=== PATIENT | male | born 1965 | race Caucasian/White ===

== ENCOUNTER 2017-01-05 17:55 | Emergency (ER) | payer OTHER ==
[2017-01-05 19:03] VITALS: BP 141/58
[2017-01-05] MEDS ORDERED: Butorphanol 2 MG/ML SDV IM PRN (19:26)
[2017-01-05] MEDS ORDERED: Ondansetron 4 MG Tab.DIS PO ONE (19:26)
--- NOTE | 2017-01-05 19:29 | EDM.PDOC ---
ED HPI GENERAL MEDICAL PROBLEM - General Chief Complaint: Headache Stated Complaint: MIGRAINE [id number] Time Seen by Provider: 01/05/17 19:25 Source of Information: Reports: Patient History Limitations: Reports: No Limitations - History of Present Illness INITIAL COMMENTS - FREE TEXT/NARRATIVE: This 51 yo male patient reports to the ED with a 2 day history of a migraine headache. The patient has attempted to get into his primary care facility, but has not been able to get an appointment. The patient reports he has been taking his abortive medications and ibuprofen, but has had no symptom relief. 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 Frontal Pain Score (Numeric/FACES): 8 - Related Data Allergies Allergy/AdvReac Type Severity Reaction Status Date / Time diphenhydramine HCl Allergy Intermediate Itching Verified 01/05/17 18:26 [From Benadryl] ketorolac tromethamine Allergy Intermediate Hives Verified 01/05/17 18:26 [From Toradol] morphine Allergy Intermediate Itching Verified 01/05/17 18:26 oxycodone HCl [From Percocet] Allergy Intermediate Itching Verified 01/05/17 18: 26 Penicillins Allergy Intermediate Itching Verified 01/05/17 18:26 clarithromycin Allergy Mild Rash Verified 01/05/17 18:26 prochlorperazine Allergy Mild Itching Verified 01/05/17 18:26 topiramate Allergy Mild Headache Verified 01/05/17 18:26 tramadol Allergy Mild Itching Verified 01/05/17 18:26 cyproheptadine Allergy Cannot Verified 01/05/17 18:27 Remember formaldehyde Allergy Cannot Verified 01/05/17 18:26 Remember haloperidol [From Haldol] Allergy Nausea Verified 01/05/17 18:26 haloperidol lactate Allergy Nausea Verified 01/05/17 18:26 [From Haldol] hydrocodone Allergy Hives Verified 01/05/17 18:26 olmesartan medoxomil Allergy Dizziness Verified 01/05/17 18:26 [From Benicar HCT] propoxyphene napsylate Allergy Itching Verified 01/05/17 18:26 [From Darvocet-N 100] Home Meds: Home Meds Almotriptan [Axert] 12.5 mg PO ASDIRECTED PRN 03/29/13 [History] Aspirin [Halfprin] 81 mg PO DAILY 03/29/13 [History] Colesevelam HCl [Welchol] 625 mg PO DAILY 03/29/13 [History] Doxepin [SINEquan] 150 mg PO BEDTIME 03/29/13 [History] Ibuprofen [Motrin] 200 mg PO Q6H PRN 03/29/13 [History] Losartan/Hydrochlorothiazide [Hyzaar 50-12.5 Tablet] 1 tab PO DAILY 05/17/13 [ History] Naproxen 500 mg PO BID 06/06/14 [History] Past Medical History Respiratory History: Reports: Sleep Apnea Neurological History: Reports: Migraines - Past Surgical History HEENT Surgical History: Reports: Naso-Sinus Surgery, Tonsillectomy Musculoskeletal Surgical History: Reports: Hip Replacement Social & Family History - Family History Family Medical History: Noncontributory - Tobacco Use Smoking Status *Q: Former Smoker Years of Tobacco use: 35 Packs/Tins Daily: 1 Used Tobacco, but Quit: Yes Month Tobacco Last Used: 03/1991 Second Hand Smoke Exposure: No - Caffeine Use Caffeine Use: Reports: Coffee, Soda - Alcohol Use Days Per Week of Alcohol Use: 2 Number of Drinks Per Day: 4 Total Drinks Per Week: 8 - Recreational Drug Use Recreational Drug Use: No - Living Situation & Occupation Living situation: Reports: Single Occupation: Employed ED ROS GENERAL - Review of Systems Review Of Systems: ROS reveals no pertinent complaints other than HPI. - Physical Exam Exam: See Below Exam Limited By: No Limitations General Appearance: Alert, WD/WN, Moderate Distress Eye Exam: Bilateral Eye: EOMI, Normal Inspection, PERRL Ears: Normal External Exam, Normal Canal, Hearing Grossly Normal, Normal TMs Nose: Normal Inspection, Normal Mucosa, No Blood Throat/Mouth: Normal Inspection, Normal Lips, Normal Teeth, Normal Gums, Normal Oropharynx, Normal Voice, No Airway Compromise Head Exam: Atraumatic, Normocephalic Neck: Normal Inspection, Supple, Non-Tender, Full Range of Motion Respiratory/Chest: No Respiratory Distress, Lungs Clear, Normal Breath Sounds, No Accessory Muscle Use, Chest Non-Tender Cardiovascular: Normal Peripheral Pulses, Regular Rate, Rhythm, No Edema, No Gallop, No JVD, No Murmur, No Rub GI/Abdominal: Normal Bowel Sounds, Soft, Non-Tender, No Organomegaly, No Distention, No Abnormal Bruit, No Mass (Male) Exam: Deferred Rectal (Males) Exam: Deferred Neuro Exam (Abbreviated): Alert, Oriented, CN II-XII Intact, Normal Cognition, Normal Gait, Normal Reflexes, No Motor/Sensory Deficits Extremities: Normal Inspection, Normal Range of Motion, Non-Tender, No Pedal Edema, Normal Capillary Refill Psychiatric: Normal Affect, Normal Mood Skin Exam: Warm, Dry, Intact, Normal Color, No Rash Course - Vital Signs Last Recorded V/S: Last Vital Signs Temp 36.6 C 01/05/17 19:01 Pulse 92 01/05/17 19:01 Resp 19 01/05/17 19:01 BP 141/58 H 01/05/17 19:01 Pulse Ox 97 01/05/17 19:01 - Orders/Labs/Meds Orders: Active Orders 24 hr Category Date Time Status Butorphanol [Stadol] Med 01/05/17 19:26 Ordered 2 mg IM Q2H PRN Medication Orders Butorphanol Tartrate (Stadol) 2 mg IM Q2H PRN PRN Reason: Pain Last Admin: 01/05/17 19:31 Dose: 2 mg Meds: Medications Generic Name Dose Route Start Last Admin Trade Name Freq PRN Reason Stop Dose Admin Butorphanol Tartrate 2 mg 01/05/17 19:26 01/05/17 19:31 Stadol IM 2 mg Q2H PRN Administration Pain Discontinued Medications Generic Name Dose Route Start Last Admin Trade Name Freq PRN Reason Stop Dose Admin Ondansetron HCl 4 mg 01/05/17 19:26 01/05/17 19:31 Zofran Odt PO 01/05/17 19:27 4 mg ONETIME ONE Administration Departure - Departure Time of Disposition: 19:27 Disposition: Home, Self-Care 01 Condition: Fair Clinical Impression: Migraine - Discharge Information Instructions: Recurrent Migraine Headache, [id number] Forms: ED Department Discharge Care Plan Goals: The patient was advised of the examination results during the visit. The patient was given an oral dose of Zofran and an injection of Stadol (2 mg) while in the ED. The patient was encouraged to increase his oral fluid intake. The patient should follow-up with his primary care facility for continued evaluation and further management. If the patient has any additional symptoms or concerns, the patient should either visit his primary care facility or return to the emergency department. - My Orders Last 24 Hours: My Active Orders 01/05/17 19:26 Butorphanol [Stadol] 2 mg IM Q2H PRN - Assessment/Plan Last 24 Hours: My Active Orders 01/05/17 19:26 Butorphanol [Stadol] 2 mg IM Q2H PRN
== END 2017-01-05 19:49 | disposition home or self-care (01) ==
LOC: DL.ED 17:55
DX: G43.909 Migraine, unspecified, not intractable, without status migrainosus (principal); Z88.8 Allergy status to other drugs, medicaments and biological substances; Z79.899 Other long term (current) drug therapy; Z87.891 Personal history of nicotine dependence
CPT/HCPCS: 96372; 99283; A9270; J0595

== ENCOUNTER 2017-01-13 14:53 | Emergency (ER) | payer OTHER ==
[2017-01-13 15:19] VITALS: BP 158/82
[2017-01-13] MEDS ORDERED: Butorphanol 2 MG/ML SDV IM ONE (18:59)
--- NOTE | 2017-01-13 19:03 | EDM.PDOC ---
ED HPI GENERAL MEDICAL PROBLEM - General Chief Complaint: Headache Stated Complaint: [id number] MIGRAINE Time Seen by Provider: 01/13/17 18:59 Source of Information: Reports: Patient History Limitations: Reports: No Limitations - History of Present Illness INITIAL COMMENTS - FREE TEXT/NARRATIVE: richard h/o prob. same as before, no change Headache Pain Score (Numeric/FACES): 6 - Related Data Allergies Allergy/AdvReac Type Severity Reaction Status Date / Time diphenhydramine HCl Allergy Intermediate Itching Verified 01/13/17 15:12 [From Benadryl] ketorolac tromethamine Allergy Intermediate Hives Verified 01/13/17 15:12 [From Toradol] morphine Allergy Intermediate Itching Verified 01/13/17 15:12 oxycodone HCl [From Percocet] Allergy Intermediate Itching Verified 01/13/17 15: 12 Penicillins Allergy Intermediate Itching Verified 01/13/17 15:12 clarithromycin Allergy Mild Rash Verified 01/13/17 15:12 prochlorperazine Allergy Mild Itching Verified 01/13/17 15:12 topiramate Allergy Mild Headache Verified 01/13/17 15:12 tramadol Allergy Mild Itching Verified 01/13/17 15:12 cyproheptadine Allergy Cannot Verified 01/13/17 15:12 Remember formaldehyde Allergy Cannot Verified 01/13/17 15:12 Remember haloperidol [From Haldol] Allergy Nausea Verified 01/13/17 15:12 haloperidol lactate Allergy Nausea Verified 01/13/17 15:12 [From Haldol] hydrocodone Allergy Hives Verified 01/13/17 15:12 olmesartan medoxomil Allergy Dizziness Verified 01/13/17 15:12 [From Benicar HCT] propoxyphene napsylate Allergy Itching Verified 01/13/17 15:12 [From Darvocet-N 100] Home Meds: Home Meds Almotriptan [Axert] 12.5 mg PO ASDIRECTED PRN 03/29/13 [History] Aspirin [Halfprin] 81 mg PO DAILY 03/29/13 [History] Colesevelam HCl [Welchol] 625 mg PO DAILY 03/29/13 [History] Doxepin [SINEquan] 150 mg PO BEDTIME 03/29/13 [History] Ibuprofen [Motrin] 200 mg PO Q6H PRN 03/29/13 [History] Losartan/Hydrochlorothiazide [Hyzaar 50-12.5 Tablet] 1 tab PO DAILY 05/17/13 [ History] Naproxen 500 mg PO BID 06/06/14 [History] Past Medical History Respiratory History: Reports: Sleep Apnea Neurological History: Reports: Migraines - Past Surgical History HEENT Surgical History: Reports: Naso-Sinus Surgery, Tonsillectomy Musculoskeletal Surgical History: Reports: Hip Replacement Social & Family History - Family History Family Medical History: Noncontributory - Tobacco Use Smoking Status *Q: Never Smoker Years of Tobacco use: 35 Packs/Tins Daily: 1 Used Tobacco, but Quit: Yes Month Tobacco Last Used: 03/1991 Second Hand Smoke Exposure: No - Caffeine Use Caffeine Use: Reports: Coffee, Soda - Alcohol Use Days Per Week of Alcohol Use: 2 Number of Drinks Per Day: 4 Total Drinks Per Week: 8 - Recreational Drug Use Recreational Drug Use: No - Living Situation & Occupation Living situation: Reports: Single Occupation: Employed ED ROS GENERAL - Review of Systems Review Of Systems: ROS reveals no pertinent complaints other than HPI. - Physical Exam Exam: See Below Exam Limited By: No Limitations General Appearance: Alert, WD/WN, Mild Distress, Other (headache) Eye Exam: Bilateral Eye: PERRL (pupils ess ER @ 4mm) Ears: Hearing Grossly Normal Throat/Mouth: Normal Voice, No Airway Compromise Head Exam: Atraumatic Neck: Non-Tender, Full Range of Motion Respiratory/Chest: No Respiratory Distress Cardiovascular: Regular Rate, Rhythm GI/Abdominal: Soft, Non-Tender Neuro Exam (Abbreviated): Alert, Oriented, Normal Cognition, Normal Gait, No Motor/Sensory Deficits Psychiatric: Flat Affect Skin Exam: Warm, Dry, Normal Color Course - Vital Signs Last Recorded V/S: Last Vital Signs Temp 36.4 C 01/13/17 15:17 Pulse 88 01/13/17 15:17 Resp 18 01/13/17 15:17 BP 158/82 H 01/13/17 15:17 Pulse Ox 98 01/13/17 15:17 - Orders/Labs/Meds Meds: Medications Discontinued Medications Generic Name Dose Route Start Last Admin Trade Name Freq PRN Reason Stop Dose Admin Butorphanol Tartrate 2 mg 01/13/17 18:59 01/13/17 19:03 Stadol IM 01/13/17 19:00 2 mg ONETIME ONE Administration Departure - Departure Time of Disposition: 19:00 Disposition: Home, Self-Care 01 Condition: Good Clinical Impression: Cluster headache syndrome - Discharge Information Instructions: Cluster Headache, [id number] Forms: ED Department Discharge Additional Instructions: 1) rest as much as possible 2) recheck as needed
== END 2017-01-13 19:07 | disposition home or self-care (01) ==
LOC: DL.ED 14:53
DX: G44.009 Cluster headache syndrome, unspecified, not intractable (principal); Z88.0 Allergy status to penicillin; Z88.5 Allergy status to narcotic agent; Z88.6 Allergy status to analgesic agent; Z79.82 Long term (current) use of aspirin; Z88.8 Allergy status to other drugs, medicaments and biological substances
CPT/HCPCS: 96372; 99283; J0595

== ENCOUNTER 2017-01-28 13:31 | Emergency (ER) | payer OTHER ==
[2017-01-28 16:48] VITALS: BP 144/93
[2017-01-28] MEDS ORDERED: Butorphanol 2 MG/ML SDV IM ONE (17:31)
[2017-01-28] MEDS ORDERED: Promethazine 25 MG/ML SDV IM ONE (17:32)
--- NOTE | 2017-01-28 17:35 | EDM.PDOC ---
ED HPI GENERAL MEDICAL PROBLEM - General Chief Complaint: Headache Stated Complaint: headache Time Seen by Provider: 01/28/17 17:00 Source of Information: Reports: Patient, RN Notes Reviewed History Limitations: Reports: No Limitations - History of Present Illness INITIAL COMMENTS - FREE TEXT/NARRATIVE: Patient presents with migraine which began last night associated with nausea, right occipital lateral side of the head wrapping around to the temporal and frontal area. Location: Reports: Head Quality: Reports: Ache Severity: Severe Improves with: Reports: None Worsens with: Reports: None Associated Symptoms: Reports: No Other Symptoms Headache Pain Score (Numeric/FACES): 10 - Related Data Allergies Allergy/AdvReac Type Severity Reaction Status Date / Time diphenhydramine HCl Allergy Intermediate Itching Verified 01/28/17 16:47 [From Benadryl] ketorolac tromethamine Allergy Intermediate Hives Verified 01/28/17 16:47 [From Toradol] morphine Allergy Intermediate Itching Verified 01/28/17 16:47 oxycodone HCl [From Percocet] Allergy Intermediate Itching Verified 01/28/17 16: 47 Penicillins Allergy Intermediate Itching Verified 01/28/17 16:47 clarithromycin Allergy Mild Rash Verified 01/28/17 16:47 prochlorperazine Allergy Mild Itching Verified 01/28/17 16:47 topiramate Allergy Mild Headache Verified 01/28/17 16:47 tramadol Allergy Mild Itching Verified 01/28/17 16:47 cyproheptadine Allergy Cannot Verified 01/28/17 16:47 Remember formaldehyde Allergy Cannot Verified 01/28/17 16:47 Remember haloperidol [From Haldol] Allergy Nausea Verified 01/28/17 16:47 haloperidol lactate Allergy Nausea Verified 01/28/17 16:47 [From Haldol] hydrocodone Allergy Hives Verified 01/28/17 16:47 olmesartan medoxomil Allergy Dizziness Verified 01/28/17 16:47 [From Benicar HCT] propoxyphene napsylate Allergy Itching Verified 01/28/17 16:47 [From Darvocet-N 100] Home Meds: Home Meds Almotriptan [Axert] 12.5 mg PO ASDIRECTED PRN 03/29/13 [History] Aspirin [Halfprin] 81 mg PO DAILY 03/29/13 [History] Colesevelam HCl [Welchol] 625 mg PO DAILY 03/29/13 [History] Doxepin [SINEquan] 150 mg PO BEDTIME 03/29/13 [History] Ibuprofen [Motrin] 200 mg PO Q6H PRN 03/29/13 [History] Losartan/Hydrochlorothiazide [Hyzaar 50-12.5 Tablet] 1 tab PO DAILY 05/17/13 [ History] Naproxen 500 mg PO BID 06/06/14 [History] Past Medical History Cardiovascular History: Reports: High Cholesterol, Hypertension Respiratory History: Reports: Sleep Apnea Neurological History: Reports: Migraines - Infectious Disease History Infectious Disease History: Reports: Chicken Pox - Past Surgical History HEENT Surgical History: Reports: Naso-Sinus Surgery, Tonsillectomy Musculoskeletal Surgical History: Reports: Hip Replacement Social & Family History - Family History Family Medical History: Noncontributory - Tobacco Use Smoking Status *Q: Never Smoker Years of Tobacco use: 35 Packs/Tins Daily: 1 Used Tobacco, but Quit: Yes Month Tobacco Last Used: 03/1991 Second Hand Smoke Exposure: No - Caffeine Use Caffeine Use: Reports: Coffee - Alcohol Use Days Per Week of Alcohol Use: 2 Number of Drinks Per Day: 4 Total Drinks Per Week: 8 - Recreational Drug Use Recreational Drug Use: No - Living Situation & Occupation Living situation: Reports: Single Occupation: Employed ED ROS GENERAL - Review of Systems Review Of Systems: ROS reveals no pertinent complaints other than HPI. - Physical Exam Exam: See Below Exam Limited By: No Limitations General Appearance: Alert, WD/WN, No Apparent Distress Eye Exam: Bilateral Eye: Normal Inspection Ears: Normal External Exam, Normal Canal, Hearing Grossly Normal, Normal TMs Nose: Normal Inspection, Normal Mucosa, No Blood Throat/Mouth: Normal Inspection, Normal Lips, Normal Teeth, Normal Gums, Normal Oropharynx, Normal Voice, No Airway Compromise Head Exam: Atraumatic, Normocephalic Neck: Normal Inspection, Supple, Non-Tender, Full Range of Motion Respiratory/Chest: No Respiratory Distress, Lungs Clear, Normal Breath Sounds, No Accessory Muscle Use, Chest Non-Tender Cardiovascular: Normal Peripheral Pulses, Regular Rate, Rhythm, No Edema, No Gallop, No JVD, No Murmur, No Rub GI/Abdominal: Normal Bowel Sounds, Soft, Non-Tender, No Organomegaly, No Distention, No Abnormal Bruit, No Mass (Male) Exam: Deferred Rectal (Males) Exam: Deferred Neuro Exam (Abbreviated): Alert, Oriented, CN II-XII Intact, Normal Cognition, Normal Gait, Normal Reflexes, No Motor/Sensory Deficits Back Exam: Normal Inspection, Full Range of Motion, NT Extremities: Normal Inspection, Normal Range of Motion, Non-Tender, No Pedal Edema, Normal Capillary Refill Psychiatric: Normal Affect, Normal Mood Skin Exam: Warm, Dry, Intact, Normal Color, No Rash Course - Vital Signs Last Recorded V/S: Last Vital Signs Temp 97.4 F 01/28/17 16:47 Pulse 87 01/28/17 16:47 Resp 20 01/28/17 16:47 BP 144/93 H 01/28/17 16:47 Pulse Ox 97 01/28/17 16:47 - Orders/Labs/Meds Meds: Medications Discontinued Medications Generic Name Dose Route Start Last Admin Trade Name Freq PRN Reason Stop Dose Admin Butorphanol Tartrate 2 mg 01/28/17 17:31 Stadol IM 01/28/17 17:32 ONETIME ONE Promethazine HCl 50 mg 01/28/17 17:32 Phenergan IM 01/28/17 17:33 ONETIME ONE Departure - Departure Time of Disposition: 17:33 Disposition: Home, Self-Care 01 Condition: Fair Clinical Impression: Migraine - Discharge Information Instructions: Recurrent Migraine Headache, [id number] Referrals: Anshu Pillai MD [Primary Care Provider] - Forms: ED Department Discharge Additional Instructions: Rest Drink plenty of water Follow up with your primary care facility
== END 2017-01-28 18:30 | disposition home or self-care (01) ==
LOC: DL.ED 13:31
DX: G43.909 Migraine, unspecified, not intractable, without status migrainosus (principal); Z88.0 Allergy status to penicillin; Z88.6 Allergy status to analgesic agent; Z88.8 Allergy status to other drugs, medicaments and biological substances; Z88.5 Allergy status to narcotic agent; Z79.82 Long term (current) use of aspirin; Z79.899 Other long term (current) drug therapy
CPT/HCPCS: 96372; 99283; J0595; J2550

== ENCOUNTER 2017-03-17 18:36 | Emergency (ER) | payer OTHER ==
[2017-03-17 18:56] VITALS: BP 135/86
[2017-03-17] MEDS ORDERED: Butorphanol 2 MG/ML SDV IM ONE (19:08)
[2017-03-17] MEDS ORDERED: Promethazine 25 MG/ML SDV IM ONE (19:33)
--- NOTE | 2017-03-17 19:59 | EDM.PDOC ---
ED HPI GENERAL MEDICAL PROBLEM - General Chief Complaint: Headache Stated Complaint: MIGRAINE, [id number] Time Seen by Provider: 03/17/17 19:05 Source of Information: Reports: Patient History Limitations: Reports: Language Barrier - History of Present Illness INITIAL COMMENTS - FREE TEXT/NARRATIVE: C/O cluster headache to right side of head since this am. Patient has extensive hx of same and has been worked up i [facility] in past. Symptoms same as usual headache. Stated he believes this one triggered by change in weather. 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) Right Headache Pain Score (Numeric/FACES): 10 - Related Data Allergies Allergy/AdvReac Type Severity Reaction Status Date / Time diphenhydramine HCl Allergy Intermediate Itching Verified 03/17/17 18:49 [From Benadryl] ketorolac tromethamine Allergy Intermediate Hives Verified 03/17/17 18:49 [From Toradol] morphine Allergy Intermediate Itching Verified 03/17/17 18:49 oxycodone HCl [From Percocet] Allergy Intermediate Itching Verified 03/17/17 18: 49 Penicillins Allergy Intermediate Itching Verified 03/17/17 18:49 clarithromycin Allergy Mild Rash Verified 03/17/17 18:49 prochlorperazine Allergy Mild Itching Verified 03/17/17 18:49 topiramate Allergy Mild Headache Verified 03/17/17 18:49 tramadol Allergy Mild Itching Verified 03/17/17 18:49 cyproheptadine Allergy Cannot Verified 03/17/17 18:49 Remember formaldehyde Allergy Cannot Verified 03/17/17 18:49 Remember haloperidol [From Haldol] Allergy Nausea Verified 03/17/17 18:49 haloperidol lactate Allergy Nausea Verified 03/17/17 18:49 [From Haldol] hydrocodone Allergy Hives Verified 03/17/17 18:49 olmesartan medoxomil Allergy Dizziness Verified 03/17/17 18:49 [From Benicar HCT] propoxyphene napsylate Allergy Itching Verified 03/17/17 18:49 [From Darvocet-N 100] Home Meds: Home Meds Almotriptan [Axert] 12.5 mg PO ASDIRECTED PRN 03/29/13 [History] Aspirin [Halfprin] 81 mg PO DAILY 03/29/13 [History] Colesevelam HCl [Welchol] 625 mg PO DAILY 03/29/13 [History] Doxepin [SINEquan] 150 mg PO BEDTIME 03/29/13 [History] Ibuprofen [Motrin] 200 mg PO Q6H PRN 03/29/13 [History] Losartan/Hydrochlorothiazide [Hyzaar 50-12.5 Tablet] 1 tab PO DAILY 05/17/13 [ History] Naproxen 500 mg PO BID 06/06/14 [History] Clindamycin HCl 1 tab PO ASDIRECTED 03/17/17 [History] Cyclobenzaprine [Flexeril] 1 tab PO Q8H PRN 03/17/17 [History] Propranolol [Inderal LA] 1 tab PO DAILY 03/17/17 [History] Triamcinolone Acetonide [Triamcinolone Acetonide 0.1% Crm] 1 applic TOP ASDIRECTED PRN 03/17/17 [History] Past Medical History Cardiovascular History: Reports: High Cholesterol, Hypertension Respiratory History: Reports: Sleep Apnea Gastrointestinal History: Reports: None Genitourinary History: Reports: None Neurological History: Reports: Migraines - Infectious Disease History Infectious Disease History: Reports: Chicken Pox - Past Surgical History HEENT Surgical History: Reports: Naso-Sinus Surgery, Tonsillectomy Musculoskeletal Surgical History: Reports: Hip Replacement Social & Family History - Family History Family Medical History: Noncontributory - Tobacco Use Smoking Status *Q: Unknown Ever Smoked Years of Tobacco use: 35 Packs/Tins Daily: 1 Used Tobacco, but Quit: Yes Month Tobacco Last Used: 03/1991 Second Hand Smoke Exposure: No - Caffeine Use Caffeine Use: Reports: Coffee, Soda - Alcohol Use Days Per Week of Alcohol Use: 2 Number of Drinks Per Day: 4 Total Drinks Per Week: 8 - Recreational Drug Use Recreational Drug Use: No - Living Situation & Occupation Living situation: Reports: Single Occupation: Employed ED ROS GENERAL - Review of Systems Review Of Systems: See Below Constitutional: Reports: No Symptoms HEENT: Reports: Vision Change (intermittent light sensitivity) Cardiovascular: Reports: No Symptoms Endocrine: Reports: No Symptoms GI/Abdominal: Reports: Nausea (intermittent) Musculoskeletal: Reports: Neck Pain (chronic, no change) Skin: Reports: No Symptoms Neurological: Reports: Headache Psychiatric: Reports: No Symptoms Hematologic/Lymphatic: Reports: No Symptoms Immunologic: Reports: No Symptoms - Physical Exam Exam: See Below Exam Limited By: No Limitations General Appearance: Alert, Mild Distress Eye Exam: Bilateral Eye: EOMI, PERRL Ears: Normal External Exam, Normal TMs Nose: Normal Inspection Throat/Mouth: Normal Inspection Head Exam: Atraumatic, Normocephalic Neck: Tender Lateral Respiratory/Chest: No Respiratory Distress, Lungs Clear Cardiovascular: Regular Rate, Rhythm GI/Abdominal: Normal Bowel Sounds Neuro Exam (Abbreviated): Alert, Oriented, CN II-XII Intact, Normal Cognition, Normal Gait, Normal Reflexes Back Exam: Full Range of Motion Extremities: Normal Inspection Psychiatric: Normal Affect, Normal Mood Skin Exam: Warm, Dry, Intact, Normal Color Course - Vital Signs Last Recorded V/S: Last Vital Signs Temp 97.8 F 03/17/17 18:55 Pulse 79 03/17/17 18:55 Resp 16 03/17/17 18:55 BP 135/86 03/17/17 18:55 Pulse Ox 100 03/17/17 18:55 - Orders/Labs/Meds Meds: Medications Discontinued Medications Generic Name Dose Route Start Last Admin Trade Name Christie PRN Reason Stop Dose Admin Butorphanol Tartrate 2 mg 03/17/17 19:08 03/17/17 19:15 Stadol IM 03/17/17 19:09 2 mg ONETIME ONE Administration Promethazine HCl 25 mg 03/17/17 19:33 03/17/17 19:37 Phenergan IM 03/17/17 19:34 25 mg ONETIME ONE Administration Departure - Departure Time of Disposition: 20:03 Disposition: Home, Self-Care 01 Condition: Good Clinical Impression: Cluster headache syndrome - Discharge Information Instructions: Cluster Headache, [id number] Forms: ED Department Discharge Additional Instructions: rest light activity next 24 hours follow up as needed
== END 2017-03-17 20:10 | disposition home or self-care (01) ==
LOC: DL.ED 18:36
DX: G44.009 Cluster headache syndrome, unspecified, not intractable (principal); I10 Essential (primary) hypertension; E78.00 Pure hypercholesterolemia, unspecified; Z87.891 Personal history of nicotine dependence; Z88.0 Allergy status to penicillin; Z88.1 Allergy status to other antibiotic agents; Z88.5 Allergy status to narcotic agent; Z88.6 Allergy status to analgesic agent; Z88.8 Allergy status to other drugs, medicaments and biological substances
CPT/HCPCS: 96372; 99282; J0595; J2550

== ENCOUNTER 2017-04-23 18:06 | Emergency (ER) | payer OTHER ==
[2017-04-23 19:15] VITALS: BP 143/78
[2017-04-23] MEDS ORDERED: Butorphanol 2 MG/ML SDV IM ONE (20:33)
[2017-04-23] MEDS ORDERED: Promethazine 25 MG/ML SDV IM ONE (20:33)
--- NOTE | 2017-04-23 20:35 | EDM.PDOC ---
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 Right Head Pain Score (Numeric/FACES): 8 - Related Data Allergies Allergy/AdvReac Type Severity Reaction Status Date / Time diphenhydramine HCl Allergy Intermediate Itching Verified 04/23/17 19:14 [From Benadryl] ketorolac tromethamine Allergy Intermediate Hives Verified 04/23/17 19:14 [From Toradol] morphine Allergy Intermediate Itching Verified 04/23/17 19:14 oxycodone HCl [From Percocet] Allergy Intermediate Itching Verified 04/23/17 19: 14 Penicillins Allergy Intermediate Itching Verified 04/23/17 19:14 clarithromycin Allergy Mild Rash Verified 04/23/17 19:14 prochlorperazine Allergy Mild Itching Verified 04/23/17 19:14 topiramate Allergy Mild Headache Verified 04/23/17 19:14 tramadol Allergy Mild Itching Verified 04/23/17 19:14 cyproheptadine Allergy Cannot Verified 04/23/17 19:14 Remember formaldehyde Allergy Cannot Verified 04/23/17 19:14 Remember haloperidol [From Haldol] Allergy Nausea Verified 04/23/17 19:14 haloperidol lactate Allergy Nausea Verified 04/23/17 19:14 [From Haldol] hydrocodone Allergy Hives Verified 04/23/17 19:14 olmesartan medoxomil Allergy Dizziness Verified 04/23/17 19:14 [From Benicar HCT] propoxyphene napsylate Allergy Itching Verified 04/23/17 19:14 [From Darvocet-N 100] Home Meds: Home Meds Almotriptan [Axert] 12.5 mg PO ASDIRECTED PRN 03/29/13 [History] Aspirin [Halfprin] 81 mg PO DAILY 03/29/13 [History] Colesevelam HCl [Welchol] 625 mg PO DAILY 03/29/13 [History] Doxepin [SINEquan] 150 mg PO BEDTIME 03/29/13 [History] Ibuprofen [Motrin] 200 mg PO Q6H PRN 03/29/13 [History] Losartan/Hydrochlorothiazide [Hyzaar 50-12.5 Tablet] 1 tab PO DAILY 05/17/13 [ History] Naproxen 500 mg PO BID 06/06/14 [History] Clindamycin HCl 1 tab PO ASDIRECTED 03/17/17 [History] Cyclobenzaprine [Flexeril] 1 tab PO Q8H PRN 03/17/17 [History] Propranolol [Inderal LA] 1 tab PO DAILY 03/17/17 [History] Triamcinolone Acetonide [Triamcinolone Acetonide 0.1% Crm] 1 applic TOP ASDIRECTED PRN 03/17/17 [History] Past Medical History Cardiovascular History: Reports: High Cholesterol, Hypertension Respiratory History: Reports: Sleep Apnea Gastrointestinal History: Reports: None Genitourinary History: Reports: None Neurological History: Reports: Migraines - Infectious Disease History Infectious Disease History: Reports: Chicken Pox - Past Surgical History HEENT Surgical History: Reports: Naso-Sinus Surgery, Tonsillectomy Musculoskeletal Surgical History: Reports: Hip Replacement Social & Family History - Family History Family Medical History: Noncontributory - Tobacco Use Smoking Status *Q: Never Smoker Years of Tobacco use: 35 Packs/Tins Daily: 1 Used Tobacco, but Quit: Yes Month Tobacco Last Used: 03/1991 Second Hand Smoke Exposure: No - Caffeine Use Caffeine Use: Reports: Coffee, Soda - Alcohol Use Days Per Week of Alcohol Use: 2 Number of Drinks Per Day: 4 Total Drinks Per Week: 8 - Recreational Drug Use Recreational Drug Use: No - Living Situation & Occupation Living situation: Reports: Single Occupation: Employed ED ROS GENERAL - Review of Systems Review Of Systems: ROS reveals no pertinent complaints other than HPI. - Physical Exam Exam: See Below Exam Limited By: No Limitations General Appearance: Alert, WD/WN, Mild Distress, Moderate Distress, Other ( headache) Eye Exam: Bilateral Eye: PERRL (pupils ER @ 4mm) Ears: Hearing Grossly Normal Throat/Mouth: Normal Voice, No Airway Compromise Head Exam: Atraumatic Neck: Non-Tender, Full Range of Motion Respiratory/Chest: No Respiratory Distress Cardiovascular: Regular Rate, Rhythm GI/Abdominal: Soft, Non-Tender Neuro Exam (Abbreviated): Alert, Oriented, Normal Cognition, Normal Gait, No Motor/Sensory Deficits Psychiatric: Tearful Skin Exam: Warm, Dry, Normal Color Course - Vital Signs Last Recorded V/S: Last Vital Signs Temp 36.6 C 04/23/17 19:14 Pulse 86 04/23/17 19:14 Resp 16 04/23/17 19:14 BP 143/78 H 04/23/17 19:14 Pulse Ox 99 04/23/17 19:14 - Orders/Labs/Meds Meds: Medications Discontinued Medications Generic Name Dose Route Start Last Admin Trade Name Christie PRN Reason Stop Dose Admin Butorphanol Tartrate 2 mg 04/23/17 20:33 04/23/17 20:41 Stadol IM 04/23/17 20:34 2 mg ONETIME ONE Administration Promethazine HCl 50 mg 04/23/17 20:33 04/23/17 20:43 Phenergan IM 04/23/17 20:34 50 mg ONETIME ONE Administration Departure - Departure Time of Disposition: 20:45 Disposition: Home, Self-Care 01 Condition: Good Clinical Impression: Migraine - Discharge Information Instructions: Recurrent Migraine Headache, [id number] Forms: ED Department Discharge Additional Instructions: 1) rest 2) follow up at clinic
== END 2017-04-23 20:47 | disposition home or self-care (01) ==
LOC: DL.ED 18:06
DX: G43.909 Migraine, unspecified, not intractable, without status migrainosus (principal); I10 Essential (primary) hypertension; E78.00 Pure hypercholesterolemia, unspecified; Z87.891 Personal history of nicotine dependence; Z79.82 Long term (current) use of aspirin; Z79.899 Other long term (current) drug therapy; Z88.5 Allergy status to narcotic agent; Z88.6 Allergy status to analgesic agent; Z88.8 Allergy status to other drugs, medicaments and biological substances; Z88.0 Allergy status to penicillin; Z88.1 Allergy status to other antibiotic agents
CPT/HCPCS: 96372; 99283; J0595; J2550

== ENCOUNTER 2018-04-14 19:15 | Emergency (ER) | payer OTHER ==
[2018-04-14 19:22] VITALS: BP 141/80
[2018-04-14] MEDS ORDERED: Butorphanol 2 MG/ML SDV IM ONE (20:36)
[2018-04-14] MEDS ORDERED: Promethazine 25 MG/ML SDV IM ONE (20:36)
--- NOTE | 2018-04-14 20:42 | EDM.PDOC ---
ED HPI GENERAL MEDICAL PROBLEM - General Chief Complaint: Headache Stated Complaint: MIGRAINE [id number] Time Seen by Provider: 04/14/18 20:38 Source of Information: Reports: Patient History Limitations: Reports: No Limitations - History of Present Illness INITIAL COMMENTS - FREE TEXT/NARRATIVE: gives long h/o problem Right Temporal Headache Pain Score (Numeric/FACES): 8 - Related Data Allergies Allergy/AdvReac Type Severity Reaction Status Date / Time diphenhydramine HCl Allergy Intermediate Itching Verified 04/14/18 19:34 [From Benadryl] ketorolac tromethamine Allergy Intermediate Hives Verified 04/14/18 19:34 [From Toradol] morphine Allergy Intermediate Itching Verified 04/14/18 19:34 oxycodone HCl [From Percocet] Allergy Intermediate Itching Verified 04/14/18 19: 34 Penicillins Allergy Intermediate Itching Verified 04/14/18 19:34 clarithromycin Allergy Mild Rash Verified 04/14/18 19:34 prochlorperazine Allergy Mild Itching Verified 04/14/18 19:34 topiramate Allergy Mild Headache Verified 04/14/18 19:34 tramadol Allergy Mild Itching Verified 04/14/18 19:34 cyproheptadine Allergy Cannot Verified 04/14/18 19:34 Remember formaldehyde Allergy Cannot Verified 04/14/18 19:34 Remember haloperidol [From Haldol] Allergy Nausea Verified 04/14/18 19:34 haloperidol lactate Allergy Nausea Verified 04/14/18 19:34 [From Haldol] hydrocodone Allergy Hives Verified 04/14/18 19:34 olmesartan medoxomil Allergy Dizziness Verified 04/14/18 19:34 [From Benicar HCT] propoxyphene napsylate Allergy Itching Verified 04/14/18 19:34 [From Darvocet-N 100] Home Meds: Home Meds Almotriptan [Axert] 12.5 mg PO ASDIRECTED PRN 03/29/13 [History] Aspirin [Halfprin] 81 mg PO DAILY 03/29/13 [History] Colesevelam HCl [Welchol] 625 mg PO DAILY 03/29/13 [History] Doxepin [SINEquan] 150 mg PO BEDTIME 03/29/13 [History] Ibuprofen [Motrin] 200 mg PO Q6H PRN 03/29/13 [History] Losartan/Hydrochlorothiazide [Hyzaar 50-12.5 Tablet] 2 tab PO DAILY 05/17/13 [ History] Naproxen 500 mg PO BID 06/06/14 [History] Clindamycin HCl 1 tab PO ASDIRECTED PRN 03/17/17 [History] Cyclobenzaprine [Flexeril] 1 tab PO Q8H PRN 03/17/17 [History] Propranolol [Inderal LA] 1 tab PO DAILY 03/17/17 [History] Triamcinolone Acetonide [Triamcinolone Acetonide 0.1% Crm] 1 applic TOP ASDIRECTED PRN 03/17/17 [History] Past Medical History HEENT History: Reports: Impaired Vision Cardiovascular History: Reports: High Cholesterol, Hypertension Respiratory History: Reports: Sleep Apnea Gastrointestinal History: Reports: None Genitourinary History: Reports: None Neurological History: Reports: Migraines Psychiatric History: Reports: Anxiety - Infectious Disease History Infectious Disease History: Reports: Chicken Pox - Past Surgical History HEENT Surgical History: Reports: Naso-Sinus Surgery, Tonsillectomy Musculoskeletal Surgical History: Reports: Hip Replacement Social & Family History - Family History Family Medical History: Noncontributory - Tobacco Use Smoking Status *Q: Unknown Ever Smoked - Caffeine Use Caffeine Use: Reports: Coffee - Alcohol Use Days Per Week of Alcohol Use: 1 Number of Drinks Per Day: 2 Total Drinks Per Week: 2 - Recreational Drug Use Recreational Drug Use: No - Living Situation & Occupation Living situation: Reports: Single Occupation: Employed ED ROS GENERAL - Review of Systems Review Of Systems: ROS reveals no pertinent complaints other than HPI. - Physical Exam Exam: See Below Exam Limited By: No Limitations General Appearance: Alert, WD/WN, Mild Distress, Other (discomfort) Eye Exam: Bilateral Eye: PERRL (pupils ER @ 4mm) Ears: Hearing Grossly Normal Throat/Mouth: Normal Voice, No Airway Compromise Head Exam: Atraumatic Neck: Non-Tender, Full Range of Motion Respiratory/Chest: No Respiratory Distress Cardiovascular: Regular Rate, Rhythm GI/Abdominal: Soft, Non-Tender Neuro Exam (Abbreviated): Alert, Oriented, Normal Cognition, Normal Gait, No Motor/Sensory Deficits Psychiatric: Flat Affect Skin Exam: Warm, Dry, Normal Color Course - Vital Signs Last Recorded V/S: Last Vital Signs Temp 35.8 C 04/14/18 19:21 Pulse 76 04/14/18 19:21 Resp 16 04/14/18 19:21 BP 141/80 H 04/14/18 19:21 Pulse Ox 99 04/14/18 19:21 - Orders/Labs/Meds Meds: Medications Discontinued Medications Generic Name Dose Route Start Last Admin Trade Name Christie PRN Reason Stop Dose Admin Butorphanol Tartrate 2 mg 04/14/18 20:36 04/14/18 20:45 Stadol IM 04/14/18 20:37 2 mg ONETIME ONE Administration Promethazine HCl 50 mg 04/14/18 20:36 04/14/18 20:44 Phenergan IM 04/14/18 20:37 50 mg ONETIME ONE Administration Departure - Departure Time of Disposition: 21:15 Disposition: Home, Self-Care 01 Condition: Good Clinical Impression: Cluster headache syndrome - Discharge Information Referrals: PCP,None [Primary Care Provider] - Forms: ED Department Discharge Additional Instructions: 1) follow up at clinic
== END 2018-04-14 21:17 | disposition home or self-care (01) ==
LOC: DL.ED 19:15
DX: G44.009 Cluster headache syndrome, unspecified, not intractable (principal); E78.00 Pure hypercholesterolemia, unspecified; I10 Essential (primary) hypertension; Z88.8 Allergy status to other drugs, medicaments and biological substances; Z88.5 Allergy status to narcotic agent; Z88.0 Allergy status to penicillin; Z79.82 Long term (current) use of aspirin; Z79.899 Other long term (current) drug therapy
CPT/HCPCS: 96372; 99283; J0595; J2550

== ENCOUNTER 2018-05-13 18:55 | Emergency (ER) | payer OTHER ==
[2018-05-13 20:50] VITALS: BP 120/77
[2018-05-13] MEDS ORDERED: Promethazine 25 MG/ML SDV IM ONE (21:06)
[2018-05-13] MEDS ORDERED: Butorphanol 2 MG/ML SDV IM ONE (21:06)
--- NOTE | 2018-05-13 21:16 | EDM.PDOC ---
ED HPI GENERAL MEDICAL PROBLEM - General Chief Complaint: Headache Stated Complaint: HEADACHE Time Seen by Provider: 05/13/18 21:00 Source of Information: Reports: Patient History Limitations: Reports: No Limitations - History of Present Illness INITIAL COMMENTS - FREE TEXT/NARRATIVE: right temporal headache since Tuesday. Hx migraines, In clinic on tuesday, demerol and zofran, no relief, No vomiting, Able to eat and drink. Drinking coffee, and soda. No vomiting. Headache same as usual. Light sensitive. Patient states typically will respond well to Stadol and phenergan. Notes he started new medication every 6 weeks, First time 3-4 weeks ago and thinks there has been some improvement in decreased frequency. Right Headache Pain Score (Numeric/FACES): 8 - Related Data Allergies Allergy/AdvReac Type Severity Reaction Status Date / Time diphenhydramine HCl Allergy Intermediate Itching Verified 05/13/18 20:46 [From Benadryl] ketorolac tromethamine Allergy Intermediate Hives Verified 05/13/18 20:46 [From Toradol] morphine Allergy Intermediate Itching Verified 05/13/18 20:46 oxycodone HCl [From Percocet] Allergy Intermediate Itching Verified 05/13/18 20: 46 Penicillins Allergy Intermediate Itching Verified 05/13/18 20:46 clarithromycin Allergy Mild Rash Verified 05/13/18 20:46 prochlorperazine Allergy Mild Itching Verified 05/13/18 20:46 topiramate Allergy Mild Headache Verified 05/13/18 20:46 tramadol Allergy Mild Itching Verified 05/13/18 20:46 cyproheptadine Allergy Cannot Verified 05/13/18 20:46 Remember formaldehyde Allergy Cannot Verified 05/13/18 20:46 Remember haloperidol [From Haldol] Allergy Nausea Verified 05/13/18 20:46 haloperidol lactate Allergy Nausea Verified 05/13/18 20:46 [From Haldol] hydrocodone Allergy Hives Verified 05/13/18 20:46 olmesartan medoxomil Allergy Dizziness Verified 05/13/18 20:46 [From Benicar HCT] propoxyphene napsylate Allergy Itching Verified 05/13/18 20:46 [From Darvocet-N 100] Home Meds: Home Meds Almotriptan [Axert] 12.5 mg PO ASDIRECTED PRN 03/29/13 [History] Aspirin [Halfprin] 81 mg PO DAILY 03/29/13 [History] Colesevelam HCl [Welchol] 625 mg PO DAILY 03/29/13 [History] Doxepin [SINEquan] 150 mg PO BEDTIME 03/29/13 [History] Ibuprofen [Motrin] 200 mg PO Q6H PRN 03/29/13 [History] Losartan/Hydrochlorothiazide [Hyzaar 50-12.5 Tablet] 2 tab PO DAILY 05/17/13 [ History] Naproxen 500 mg PO BID 06/06/14 [History] Clindamycin HCl 1 tab PO ASDIRECTED PRN 03/17/17 [History] Cyclobenzaprine [Flexeril] 1 tab PO Q8H PRN 03/17/17 [History] Propranolol [Inderal LA] 1 tab PO DAILY 03/17/17 [History] Triamcinolone Acetonide [Triamcinolone Acetonide 0.1% Crm] 1 applic TOP ASDIRECTED PRN 03/17/17 [History] Past Medical History HEENT History: Reports: Impaired Vision Cardiovascular History: Reports: High Cholesterol, Hypertension Respiratory History: Reports: Sleep Apnea Gastrointestinal History: Reports: None Genitourinary History: Reports: None Neurological History: Reports: Migraines Psychiatric History: Reports: Anxiety Immunologic History: Reports: None Oncologic (Cancer) History: Reports: None Dermatologic History: Reports: None - Infectious Disease History Infectious Disease History: Reports: Chicken Pox - Past Surgical History HEENT Surgical History: Reports: Naso-Sinus Surgery, Tonsillectomy Musculoskeletal Surgical History: Reports: Hip Replacement Social & Family History - Family History Family Medical History: Noncontributory - Tobacco Use Smoking Status *Q: Never Smoker - Caffeine Use Caffeine Use: Reports: Coffee - Recreational Drug Use Recreational Drug Use: No - Living Situation & Occupation Living situation: Reports: Single Occupation: Employed ED ROS GENERAL - Review of Systems Review Of Systems: ROS reveals no pertinent complaints other than HPI. - Physical Exam Exam: See Below Exam Limited By: Other General Appearance: Mild Distress Eye Exam: Bilateral Eye: EOMI, Normal Fundi, PERRL (4mm) Ears: Normal External Exam Nose: Normal Inspection Throat/Mouth: Normal Inspection Head Exam: Atraumatic, Normocephalic Neck: Normal Inspection, Full Range of Motion Respiratory/Chest: No Respiratory Distress, Lungs Clear Cardiovascular: Regular Rate, Rhythm GI/Abdominal: Normal Bowel Sounds Neuro Exam (Abbreviated): Alert, Oriented, CN II-XII Intact, Normal Cognition Back Exam: Full Range of Motion Extremities: Normal Range of Motion Psychiatric: Flat Affect Skin Exam: Warm, Dry, Intact Course - Vital Signs Last Recorded V/S: Last Vital Signs Temp 98.2 F 05/13/18 20:46 Pulse 72 05/13/18 20:46 Resp 16 05/13/18 20:46 BP 120/77 05/13/18 20:46 Pulse Ox 96 05/13/18 20:46 - Orders/Labs/Meds Meds: Medications Discontinued Medications Generic Name Dose Route Start Last Admin Trade Name Christie PRN Reason Stop Dose Admin Butorphanol Tartrate 2 mg 05/13/18 21:06 05/13/18 21:15 Stadol IM 05/13/18 21:07 2 mg ONETIME ONE Administration Promethazine HCl 50 mg 05/13/18 21:06 05/13/18 21:17 Phenergan IM 05/13/18 21:07 50 mg ONETIME ONE Administration Departure - Departure Time of Disposition: 21:15 Disposition: Home, Self-Care 01 Condition: Good Clinical Impression: Migraine Qualifiers: Migraine type: unspecified Status migrainosus presence: without status migrainosus Intractability: not intractable Qualified Code(s): G43.909 - Migraine, unspecified, not intractable, without status migrainosus - Discharge Information *PRESCRIPTION DRUG MONITORING PROGRAM REVIEWED*: No Instructions: Recurrent Migraine Headache, [facility] Referrals: Anshu Pillai MD [Primary Care Provider] - Forms: ED Department Discharge Additional Instructions: rest increase fluid intake continue home medications
== END 2018-05-13 21:32 | disposition home or self-care (01) ==
LOC: DL.ED 18:55
DX: G43.909 Migraine, unspecified, not intractable, without status migrainosus (principal); I10 Essential (primary) hypertension; Z88.8 Allergy status to other drugs, medicaments and biological substances; Z88.0 Allergy status to penicillin; Z79.899 Other long term (current) drug therapy; Z79.82 Long term (current) use of aspirin
CPT/HCPCS: 96372; 99283; J0595; J2550

== ENCOUNTER → 2018-06-30 | Outpatient (CLI) | payer OTHER | LOC: DL.MRI 09:45 | PROVIDERS: ATTEND Orthopaedic Surgery | DX: M25.562 Pain in left knee (principal); M25.462 Effusion, left knee | CPT/HCPCS: 73721-LT ==

== ENCOUNTER 2018-09-02 14:35 | Emergency (ER) | payer OTHER ==
[2018-09-02 14:48] VITALS: BP 157/98
[2018-09-02] MEDS ORDERED: Butorphanol 2 MG/ML SDV IM ONE (15:01)
[2018-09-02] MEDS ORDERED: Promethazine 25 MG/ML SDV IM ONE (15:01)
--- NOTE | 2018-09-02 15:04 | EDM.PDOC ---
ED HPI GENERAL MEDICAL PROBLEM - General Chief Complaint: Headache Stated Complaint: HEADACHE [id number] Time Seen by Provider: 09/02/18 15:02 Source of Information: Reports: Patient History Limitations: Reports: No Limitations - History of Present Illness INITIAL COMMENTS - FREE TEXT/NARRATIVE: long h/o migraines Tx with stadol + phenergan - Related Data Allergies Allergy/AdvReac Type Severity Reaction Status Date / Time diphenhydramine HCl Allergy Intermediate Itching Verified 09/02/18 14:48 [From Benadryl] ketorolac tromethamine Allergy Intermediate Hives Verified 09/02/18 14:48 [From Toradol] morphine Allergy Intermediate Itching Verified 09/02/18 14:48 oxycodone HCl [From Percocet] Allergy Intermediate Itching Verified 09/02/18 14: 48 Penicillins Allergy Intermediate Itching Verified 09/02/18 14:48 clarithromycin Allergy Mild Rash Verified 09/02/18 14:48 prochlorperazine Allergy Mild Itching Verified 09/02/18 14:48 topiramate Allergy Mild Headache Verified 09/02/18 14:48 tramadol Allergy Mild Itching Verified 09/02/18 14:48 cyproheptadine Allergy Cannot Verified 09/02/18 14:48 Remember formaldehyde Allergy Cannot Verified 09/02/18 14:48 Remember haloperidol [From Haldol] Allergy Nausea Verified 09/02/18 14:48 haloperidol lactate Allergy Nausea Verified 09/02/18 14:48 [From Haldol] hydrocodone Allergy Hives Verified 09/02/18 14:48 olmesartan medoxomil Allergy Dizziness Verified 09/02/18 14:48 [From Benicar HCT] propoxyphene napsylate Allergy Itching Verified 09/02/18 14:48 [From Darvocet-N 100] Home Meds: Home Meds Almotriptan [Axert] 12.5 mg PO ASDIRECTED PRN 03/29/13 [History] Doxepin [SINEquan] 150 mg PO BEDTIME 03/29/13 [History] Ibuprofen [Motrin] 200 mg PO Q6H PRN 03/29/13 [History] Losartan/Hydrochlorothiazide [Hyzaar 50-12.5 Tablet] 2 tab PO DAILY 05/17/13 [ History] Naproxen 500 mg PO BID 06/06/14 [History] Propranolol [Inderal LA] 1 tab PO DAILY 03/17/17 [History] Triamcinolone Acetonide [Triamcinolone Acetonide 0.1% Crm] 1 applic TOP ASDIRECTED PRN 03/17/17 [History] Aspirin 81 mg PO DAILY 09/02/18 [History] Clindamycin HCl 600 mg PO DAILY 09/02/18 [History] Colesevelam [Welchol] 2 cap PO DAILY 09/02/18 [History] Galcanezumab-Gnlm [Emgality Pen] 120 mg SUBCUT ASDIRECTED 09/02/18 [History] Past Medical History HEENT History: Reports: Impaired Vision Cardiovascular History: Reports: High Cholesterol, Hypertension Respiratory History: Reports: Sleep Apnea Gastrointestinal History: Reports: None Genitourinary History: Reports: None Neurological History: Reports: Migraines Psychiatric History: Reports: Anxiety Immunologic History: Reports: None Oncologic (Cancer) History: Reports: None Dermatologic History: Reports: None - Infectious Disease History Infectious Disease History: Reports: Chicken Pox - Past Surgical History HEENT Surgical History: Reports: Naso-Sinus Surgery, Tonsillectomy Musculoskeletal Surgical History: Reports: Hip Replacement Social & Family History - Family History Family Medical History: Noncontributory - Tobacco Use Smoking Status *Q: Never Smoker - Caffeine Use Caffeine Use: Reports: Coffee - Recreational Drug Use Recreational Drug Use: No - Living Situation & Occupation Living situation: Reports: Single Occupation: Employed ED ROS GENERAL - Review of Systems Review Of Systems: ROS reveals no pertinent complaints other than HPI. - Physical Exam Exam: See Below Exam Limited By: No Limitations General Appearance: Alert, WD/WN, Mild Distress, Other (discomfort) Eye Exam: Bilateral Eye: PERRL (pupils ER @ 4mm) Ears: Hearing Grossly Normal Throat/Mouth: Normal Voice, No Airway Compromise Head Exam: Atraumatic Neck: Non-Tender, Full Range of Motion Respiratory/Chest: No Respiratory Distress Cardiovascular: Regular Rate, Rhythm GI/Abdominal: Soft, Non-Tender Neuro Exam (Abbreviated): Alert, Oriented, Normal Cognition, Normal Gait, No Motor/Sensory Deficits Psychiatric: Flat Affect Skin Exam: Warm, Dry, Normal Color Course - Vital Signs Last Recorded V/S: Last Vital Signs Temp 36.0 C 09/02/18 14:45 Pulse 68 09/02/18 14:45 Resp 16 09/02/18 14:45 BP 157/98 H 09/02/18 14:45 Pulse Ox 94 L 09/02/18 14:45 - Orders/Labs/Meds Meds: Medications Discontinued Medications Generic Name Dose Route Start Last Admin Trade Name Christie PRN Reason Stop Dose Admin Butorphanol Tartrate 2 mg 09/02/18 15:01 09/02/18 15:12 Stadol IM 09/02/18 15:02 2 mg ONETIME ONE Administration Promethazine HCl 50 mg 09/02/18 15:01 09/02/18 15:13 Phenergan IM 09/02/18 15:02 50 mg ONETIME ONE Administration Departure - Departure Time of Disposition: 15:35 Disposition: Home, Self-Care 01 Condition: Good Clinical Impression: Migraine - Discharge Information Referrals: Anshu Pillai MD [Primary Care Provider] - Forms: ED Department Discharge Additional Instructions: 1) follow up at clinic
== END 2018-09-02 15:35 | disposition home or self-care (01) ==
LOC: DL.ED 14:35
DX: G43.909 Migraine, unspecified, not intractable, without status migrainosus (principal); I10 Essential (primary) hypertension; Z79.82 Long term (current) use of aspirin; Z79.899 Other long term (current) drug therapy; Z98.890 Other specified postprocedural states; Z88.5 Allergy status to narcotic agent; Z88.0 Allergy status to penicillin; Z88.1 Allergy status to other antibiotic agents; Z88.6 Allergy status to analgesic agent; Z88.8 Allergy status to other drugs, medicaments and biological substances
CPT/HCPCS: 96372; 99283; J0595; J2550

== ENCOUNTER 2018-09-09 18:16 | Emergency (ER) | payer OTHER ==
[2018-09-09 18:24] VITALS: BP 139/86
[2018-09-09] MEDS ORDERED: Butorphanol 2 MG/ML SDV IM ONE (18:31)
[2018-09-09] MEDS ORDERED: Promethazine 25 MG/ML SDV IM ONE (18:32)
--- NOTE | 2018-09-09 18:35 | EDM.PDOC ---
Scribed by Norma Gonzalez 09/09/18 1835 for Isela Wolfe NP <Isela Wolfe - Last Filed: 09/09/18 18:35> ED HPI GENERAL MEDICAL PROBLEM - General Chief Complaint: Headache Stated Complaint: MIGRAINE [id number] Time Seen by Provider: 09/09/18 18:25 Source of Information: Reports: Patient, RN, RN Notes Reviewed History Limitations: Reports: No Limitations - History of Present Illness INITIAL COMMENTS - FREE TEXT/NARRATIVE: Patient presented to ER with complaint of migraine headache. This began this a.m. He had one yesterday. He was seen at clinic yesterday and given Demerol and Zofran. He has had nausea. No light or sound sensitivity. Onset: Today Duration: Getting Worse Location: Reports: Head Quality: Reports: Ache Severity: Moderate Improves with: Reports: None Worsens with: Reports: None Associated Symptoms: Reports: No Other Symptoms Headache Pain Score (Numeric/FACES): 7 - Related Data Allergies Allergy/AdvReac Type Severity Reaction Status Date / Time diphenhydramine HCl Allergy Intermediate Itching Verified 09/09/18 18:25 [From Benadryl] ketorolac tromethamine Allergy Intermediate Hives Verified 09/09/18 18:25 [From Toradol] morphine Allergy Intermediate Itching Verified 09/09/18 18:25 oxycodone HCl [From Percocet] Allergy Intermediate Itching Verified 09/09/18 18: 25 Penicillins Allergy Intermediate Itching Verified 09/09/18 18:25 clarithromycin Allergy Mild Rash Verified 09/09/18 18:25 prochlorperazine Allergy Mild Itching Verified 09/09/18 18:25 topiramate Allergy Mild Headache Verified 09/09/18 18:25 tramadol Allergy Mild Itching Verified 09/09/18 18:25 cyproheptadine Allergy Cannot Verified 09/09/18 18:25 Remember formaldehyde Allergy Cannot Verified 09/09/18 18:25 Remember haloperidol [From Haldol] Allergy Nausea Verified 09/09/18 18:25 haloperidol lactate Allergy Nausea Verified 09/09/18 18:25 [From Haldol] hydrocodone Allergy Hives Verified 09/09/18 18:25 olmesartan medoxomil Allergy Dizziness Verified 09/09/18 18:25 [From Benicar HCT] propoxyphene napsylate Allergy Itching Verified 09/09/18 18:25 [From Darvocet-N 100] Home Meds: Home Meds Almotriptan [Axert] 12.5 mg PO ASDIRECTED PRN 03/29/13 [History] Doxepin [SINEquan] 150 mg PO BEDTIME 03/29/13 [History] Ibuprofen [Motrin] 200 mg PO Q6H PRN 03/29/13 [History] Losartan/Hydrochlorothiazide [Hyzaar 50-12.5 Tablet] 2 tab PO DAILY 05/17/13 [ History] Naproxen 500 mg PO BID 06/06/14 [History] Propranolol [Inderal LA] 1 tab PO DAILY 03/17/17 [History] Triamcinolone Acetonide [Triamcinolone Acetonide 0.1% Crm] 1 applic TOP ASDIRECTED PRN 03/17/17 [History] Aspirin 81 mg PO DAILY 09/02/18 [History] Clindamycin HCl 600 mg PO DAILY 09/02/18 [History] Colesevelam [Welchol] 2 cap PO DAILY 09/02/18 [History] Galcanezumab-Gnlm [Emgality Pen] 120 mg SUBCUT ASDIRECTED 09/02/18 [History] Past Medical History HEENT History: Reports: Impaired Vision Cardiovascular History: Reports: High Cholesterol, Hypertension Respiratory History: Reports: Sleep Apnea Gastrointestinal History: Reports: None Genitourinary History: Reports: None Neurological History: Reports: Migraines Psychiatric History: Reports: Anxiety Endocrine/Metabolic History: Reports: None Hematologic History: Reports: None Immunologic History: Reports: None Oncologic (Cancer) History: Reports: None Dermatologic History: Reports: None - Infectious Disease History Infectious Disease History: Reports: Chicken Pox - Past Surgical History HEENT Surgical History: Reports: Naso-Sinus Surgery, Tonsillectomy Musculoskeletal Surgical History: Reports: Hip Replacement Social & Family History - Family History Family Medical History: Noncontributory - Tobacco Use Smoking Status *Q: Never Smoker - Caffeine Use Caffeine Use: Reports: Coffee - Recreational Drug Use Recreational Drug Use: No - Living Situation & Occupation Living situation: Reports: Single Occupation: Employed ED ROS GENERAL - Review of Systems Review Of Systems: ROS reveals no pertinent complaints other than HPI. - Physical Exam Exam: See Below Exam Limited By: No Limitations General Appearance: Alert, WD/WN, No Apparent Distress Eye Exam: Bilateral Eye: EOMI, Normal Inspection, PERRL Ears: Normal External Exam, Normal Canal, Hearing Grossly Normal, Normal TMs Nose: Normal Inspection, Normal Mucosa, No Blood Throat/Mouth: Normal Inspection, Normal Lips, Normal Teeth, Normal Gums, Normal Oropharynx, Normal Voice, No Airway Compromise Head Exam: Atraumatic, Normocephalic Neck: Normal Inspection, Supple, Non-Tender, Full Range of Motion Respiratory/Chest: No Respiratory Distress, Lungs Clear, Normal Breath Sounds, No Accessory Muscle Use, Chest Non-Tender GI/Abdominal: Normal Bowel Sounds, Soft, Non-Tender, No Organomegaly, No Distention, No Abnormal Bruit, No Mass (Male) Exam: Deferred Rectal (Males) Exam: Deferred Neuro Exam (Abbreviated): Alert, Oriented, CN II-XII Intact, Normal Cognition, Normal Gait, Normal Reflexes, No Motor/Sensory Deficits Back Exam: Normal Inspection, Full Range of Motion, NT Extremities: Normal Inspection, Normal Range of Motion, Non-Tender, No Pedal Edema, Normal Capillary Refill Psychiatric: Flat Affect Skin Exam: Warm, Dry, Intact, Normal Color, No Rash Course - Vital Signs Last Recorded V/S: Last Vital Signs Temp 35.5 C 09/09/18 18:21 Pulse 55 L 09/09/18 18:21 Resp 18 09/09/18 18:21 BP 139/86 09/09/18 18:21 Pulse Ox 99 09/09/18 18:21 - Orders/Labs/Meds Meds: Medications Discontinued Medications Generic Name Dose Route Start Last Admin Trade Name Christie PRN Reason Stop Dose Admin Butorphanol Tartrate 2 mg 09/09/18 18:31 09/09/18 18:39 Stadol IM 09/09/18 18:32 2 mg ONETIME ONE Administration Promethazine HCl 50 mg 09/09/18 18:32 09/09/18 18:38 Phenergan IM 09/09/18 18:33 50 mg ONETIME ONE Administration Departure - Departure Disposition: Home, Self-Care 01 Clinical Impression: Migraine - Discharge Information Instructions: Recurrent Migraine Headache, [id number] Forms: ED Department Discharge Additional Instructions: 1) follow up at clinic <Sang Luna - Last Filed: 09/09/18 18:46> Departure - Departure Time of Disposition: 18:46 Condition: Good I have read and agree with the documentation that has been completed regarding this visit. By signing this record, I attest that the documentation was completed in my physical presence and is an accurate record of the encounter.
== END 2018-09-09 18:51 | disposition home or self-care (01) ==
LOC: DL.ED 18:16
DX: G43.909 Migraine, unspecified, not intractable, without status migrainosus (principal); F41.9 Anxiety disorder, unspecified; Z79.899 Other long term (current) drug therapy; Z88.5 Allergy status to narcotic agent; Z88.6 Allergy status to analgesic agent; Z88.8 Allergy status to other drugs, medicaments and biological substances; Z88.0 Allergy status to penicillin; Z88.1 Allergy status to other antibiotic agents
CPT/HCPCS: 96372; 99283; J0595; J2550

== ENCOUNTER 2018-12-30 14:57 | Emergency (ER) | payer OTHER ==
[2018-12-30 15:35] VITALS: BP 121/80; PULSE 88
[2018-12-30] MEDS ORDERED: Butorphanol 2 MG/ML SDV IM ONE (16:42)
--- NOTE | 2018-12-30 16:42 | EDM.PDOC ---
ED HPI GENERAL MEDICAL PROBLEM - General Chief Complaint: Headache Stated Complaint: HEADACHE Time Seen by Provider: 12/30/18 16:41 Source of Information: Reports: Patient, RN, RN Notes Reviewed History Limitations: Reports: No Limitations - History of Present Illness INITIAL COMMENTS - FREE TEXT/NARRATIVE: Patient presents to ER by POV with complaint of headache since this morning. Has taken his migraine medication this morning and his headache still not relieved. Took Percocet at between 10:00 and 10:30. At this time headache is a 7 /10 for pain with no relief. It is exactly as the previous headaches. 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) Headache Pain Score (Numeric/FACES): 7 - Related Data Allergies Allergy/AdvReac Type Severity Reaction Status Date / Time diphenhydramine HCl Allergy Intermediate Itching Verified 10/13/18 15:33 [From Benadryl] ketorolac tromethamine Allergy Intermediate Hives Verified 10/13/18 15:33 [From Toradol] morphine Allergy Intermediate Itching Verified 10/13/18 15:33 oxycodone HCl [From Percocet] Allergy Intermediate Itching Verified 10/13/18 15: 33 Penicillins Allergy Intermediate Itching Verified 10/13/18 15:33 clarithromycin Allergy Mild Rash Verified 10/13/18 15:33 prochlorperazine Allergy Mild Itching Verified 10/13/18 15:33 topiramate Allergy Mild Headache Verified 10/13/18 15:33 tramadol Allergy Mild Itching Verified 10/13/18 15:33 cyproheptadine Allergy Cannot Verified 10/13/18 15:33 Remember formaldehyde Allergy Cannot Verified 10/13/18 15:33 Remember haloperidol [From Haldol] Allergy Nausea Verified 10/13/18 15:33 haloperidol lactate Allergy Nausea Verified 10/13/18 15:33 [From Haldol] hydrocodone Allergy Hives Verified 10/13/18 15:33 olmesartan medoxomil Allergy Dizziness Verified 10/13/18 15:33 [From Benicar HCT] propoxyphene napsylate Allergy Itching Verified 10/13/18 15:33 [From Darvocet-N 100] Home Meds: Home Meds Almotriptan [Axert] 12.5 mg PO ASDIRECTED PRN 03/29/13 [History] Doxepin [SINEquan] 150 mg PO BEDTIME 03/29/13 [History] Ibuprofen [Motrin] 200 mg PO Q6H PRN 03/29/13 [History] Losartan/Hydrochlorothiazide [Hyzaar 50-12.5 Tablet] 1 tab PO DAILY 05/17/13 [ History] Naproxen 500 mg PO BID 06/06/14 [History] Propranolol [Inderal LA] 1 tab PO DAILY 03/17/17 [History] Triamcinolone Acetonide [Triamcinolone Acetonide 0.1% Crm] 1 applic TOP ASDIRECTED PRN 03/17/17 [History] Aspirin 81 mg PO DAILY 09/02/18 [History] Clindamycin HCl 600 mg PO DAILY PRN 09/02/18 [History] Colesevelam [Welchol] 2 cap PO DAILY 09/02/18 [History] Galcanezumab-Gnlm [Emgality Pen] 120 mg SUBCUT ASDIRECTED 09/02/18 [History] Past Medical History HEENT History: Reports: Impaired Vision Cardiovascular History: Reports: High Cholesterol, Hypertension Respiratory History: Reports: Sleep Apnea Gastrointestinal History: Reports: None Genitourinary History: Reports: None Neurological History: Reports: Migraines Psychiatric History: Reports: Anxiety Endocrine/Metabolic History: Reports: None Hematologic History: Reports: None Immunologic History: Reports: None Oncologic (Cancer) History: Reports: None Dermatologic History: Reports: None - Infectious Disease History Infectious Disease History: Reports: Chicken Pox - Past Surgical History HEENT Surgical History: Reports: Naso-Sinus Surgery, Tonsillectomy Musculoskeletal Surgical History: Reports: Hip Replacement Social & Family History - Family History Family Medical History: Noncontributory - Caffeine Use Caffeine Use: Reports: Coffee - Living Situation & Occupation Living situation: Reports: Single Occupation: Employed ED ROS GENERAL - Review of Systems Review Of Systems: ROS reveals no pertinent complaints other than HPI. - Physical Exam Exam: See Below Exam Limited By: No Limitations General Appearance: Alert, WD/WN, No Apparent Distress, Other (Uncomfortable appearing) Eye Exam: Bilateral Eye: EOMI, Normal Inspection (Photophobia), PERRL Ears: Normal External Exam, Normal Canal, Hearing Grossly Normal, Normal TMs Nose: Normal Inspection, Normal Mucosa, No Blood Throat/Mouth: Normal Inspection, Normal Lips, Normal Teeth, Normal Gums, Normal Oropharynx, Normal Voice, No Airway Compromise Head Exam: Atraumatic, Normocephalic Neck: Normal Inspection, Supple, Non-Tender, Full Range of Motion Respiratory/Chest: No Respiratory Distress, Lungs Clear, Normal Breath Sounds, No Accessory Muscle Use, Chest Non-Tender Cardiovascular: Regular Rate, Rhythm Neuro Exam (Abbreviated): Alert, Oriented, CN II-XII Intact, Normal Cognition, Normal Gait, No Motor/Sensory Deficits Back Exam: Normal Inspection Extremities: Normal Inspection Psychiatric: Normal Affect, Normal Mood Skin Exam: Warm, Dry, Intact, Normal Color, No Rash Course - Vital Signs Last Recorded V/S: Last Vital Signs Temp 97.6 F 12/30/18 15:31 Pulse 88 12/30/18 15:31 Resp 18 12/30/18 15:31 BP 121/80 12/30/18 15:31 Pulse Ox 99 12/30/18 15:31 - Orders/Labs/Meds Orders: Active Orders 24 hr Category Date Time Status Butorphanol [Stadol] Med 12/30/18 16:42 Once 2 mg IM ONETIME ONE Promethazine [Phenergan] Med 12/30/18 16:43 Once 50 mg IM ONETIME ONE Departure - Departure Time of Disposition: 16:47 Disposition: Home, Self-Care 01 Condition: Good Clinical Impression: Migraine headache Qualifiers: Migraine type: unspecified Status migrainosus presence: without status migrainosus Intractability: not intractable Qualified Code(s): G43.909 - Migraine, unspecified, not intractable, without status migrainosus - Discharge Information *PRESCRIPTION DRUG MONITORING PROGRAM REVIEWED*: No *COPY OF PRESCRIPTION DRUG MONITORING REPORT IN PATIENT DELPHINE: No Instructions: Recurrent Migraine Headache, [id number] Forms: ED Department Discharge Additional Instructions: Follow up in clinic if any further problems. - My Orders Last 24 Hours: My Active Orders 12/30/18 16:42 Butorphanol [Stadol] 2 mg IM ONETIME ONE 12/30/18 16:43 Promethazine [Phenergan] 50 mg IM ONETIME ONE - Assessment/Plan Last 24 Hours: My Active Orders 12/30/18 16:42 Butorphanol [Stadol] 2 mg IM ONETIME ONE 12/30/18 16:43 Promethazine [Phenergan] 50 mg IM ONETIME ONE
[2018-12-30] MEDS ORDERED: Promethazine 25 MG/ML SDV IM ONE (16:43)
== END 2018-12-30 17:03 | disposition home or self-care (01) ==
LOC: DL.ED 14:57
DX: G43.909 Migraine, unspecified, not intractable, without status migrainosus (principal); I10 Essential (primary) hypertension; F41.9 Anxiety disorder, unspecified; Z88.0 Allergy status to penicillin; Z88.8 Allergy status to other drugs, medicaments and biological substances; Z88.1 Allergy status to other antibiotic agents; Z79.899 Other long term (current) drug therapy; Z79.82 Long term (current) use of aspirin; Z98.890 Other specified postprocedural states
CPT/HCPCS: 96372; 99283; J0595; J2550

== ENCOUNTER 2019-02-03 14:49 | Emergency (ER) | payer OTHER ==
[2019-02-03] MEDS: Butorphanol 2 MG/ML SDV IM ONE (15:01)
--- NOTE | 2019-02-03 15:01 | EDM.PDOC ---
Scribed by Norma Gonzalez 02/03/19 1501 for Huang Lord MD ED HPI GENERAL MEDICAL PROBLEM - General Chief Complaint: Headache Stated Complaint: headache Time Seen by Provider: 02/03/19 14:51 Source of Information: Reports: Patient, RN, RN Notes Reviewed History Limitations: Reports: No Limitations - History of Present Illness INITIAL COMMENTS - FREE TEXT/NARRATIVE: Patient presents to ER by POV with complaint of headache since this morning. He has taken his migraine medication this morning and his headache still not relieved. He was seen in clinic yesterday, and received an injection which alleviated the headache, but this morning the NUNEZ came back. At this time headache is a 7/10 for pain with no relief. It is exactly as the previous headaches. 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) - Related Data Allergies Allergy/AdvReac Type Severity Reaction Status Date / Time diphenhydramine HCl Allergy Intermediate Itching Verified 10/13/18 15:33 [From Benadryl] ketorolac tromethamine Allergy Intermediate Hives Verified 10/13/18 15:33 [From Toradol] morphine Allergy Intermediate Itching Verified 10/13/18 15:33 oxycodone HCl [From Percocet] Allergy Intermediate Itching Verified 10/13/18 15: 33 Penicillins Allergy Intermediate Itching Verified 10/13/18 15:33 clarithromycin Allergy Mild Rash Verified 10/13/18 15:33 prochlorperazine Allergy Mild Itching Verified 10/13/18 15:33 topiramate Allergy Mild Headache Verified 10/13/18 15:33 tramadol Allergy Mild Itching Verified 10/13/18 15:33 cyproheptadine Allergy Cannot Verified 10/13/18 15:33 Remember formaldehyde Allergy Cannot Verified 10/13/18 15:33 Remember haloperidol [From Haldol] Allergy Nausea Verified 10/13/18 15:33 haloperidol lactate Allergy Nausea Verified 10/13/18 15:33 [From Haldol] hydrocodone Allergy Hives Verified 10/13/18 15:33 olmesartan medoxomil Allergy Dizziness Verified 10/13/18 15:33 [From Benicar HCT] propoxyphene napsylate Allergy Itching Verified 10/13/18 15:33 [From Darvocet-N 100] Home Meds: Home Meds Almotriptan [Axert] 12.5 mg PO ASDIRECTED PRN 03/29/13 [History] Doxepin [SINEquan] 150 mg PO BEDTIME 03/29/13 [History] Ibuprofen [Motrin] 200 mg PO Q6H PRN 03/29/13 [History] Losartan/Hydrochlorothiazide [Hyzaar 50-12.5 Tablet] 1 tab PO DAILY 05/17/13 [ History] Naproxen 500 mg PO BID 06/06/14 [History] Propranolol [Inderal LA] 1 tab PO DAILY 03/17/17 [History] Triamcinolone Acetonide [Triamcinolone Acetonide 0.1% Crm] 1 applic TOP ASDIRECTED PRN 03/17/17 [History] Aspirin 81 mg PO DAILY 09/02/18 [History] Clindamycin HCl 600 mg PO DAILY PRN 09/02/18 [History] Colesevelam [Welchol] 2 cap PO DAILY 09/02/18 [History] Galcanezumab-Gnlm [Emgality Pen] 120 mg SUBCUT ASDIRECTED 09/02/18 [History] Past Medical History HEENT History: Reports: Impaired Vision Cardiovascular History: Reports: High Cholesterol, Hypertension Respiratory History: Reports: Sleep Apnea Gastrointestinal History: Reports: None Genitourinary History: Reports: None Neurological History: Reports: Migraines Psychiatric History: Reports: Anxiety Endocrine/Metabolic History: Reports: None Hematologic History: Reports: None Immunologic History: Reports: None Oncologic (Cancer) History: Reports: None Dermatologic History: Reports: None - Infectious Disease History Infectious Disease History: Reports: Chicken Pox - Past Surgical History HEENT Surgical History: Reports: Naso-Sinus Surgery, Tonsillectomy Musculoskeletal Surgical History: Reports: Hip Replacement Social & Family History - Family History Family Medical History: Noncontributory - Caffeine Use Caffeine Use: Reports: Coffee - Living Situation & Occupation Living situation: Reports: Single Occupation: Employed ED ROS GENERAL - Review of Systems Review Of Systems: ROS reveals no pertinent complaints other than HPI. - Physical Exam Exam: See Below Exam Limited By: No Limitations General Appearance: Alert, WD/WN, No Apparent Distress, Other (uncomfortable appearing) Eye Exam: Bilateral Eye: EOMI, Normal Inspection (photophobia), PERRL Ears: Normal External Exam, Normal Canal, Hearing Grossly Normal, Normal TMs Nose: Normal Inspection, Normal Mucosa, No Blood Throat/Mouth: Normal Inspection, Normal Lips, Normal Teeth, Normal Gums, Normal Oropharynx, Normal Voice, No Airway Compromise Head Exam: Atraumatic, Normocephalic Neck: Normal Inspection, Supple, Non-Tender, Full Range of Motion Respiratory/Chest: No Respiratory Distress, Lungs Clear, Normal Breath Sounds, No Accessory Muscle Use, Chest Non-Tender Cardiovascular: Regular Rate, Rhythm Neuro Exam (Abbreviated): Alert, Oriented, CN II-XII Intact, Normal Cognition, Normal Gait, No Motor/Sensory Deficits Back Exam: Normal Inspection Extremities: Normal Inspection Psychiatric: Normal Affect, Normal Mood Skin Exam: Warm, Dry, Intact, Normal Color, No Rash Course - Orders/Labs/Meds Meds: Medications Discontinued Medications Generic Name Dose Route Start Last Admin Trade Name Evertonq PRN Reason Stop Dose Admin Butorphanol Tartrate 2 mg 02/03/19 14:51 Stadol IM 02/03/19 14:52 ONETIME ONE Promethazine HCl 50 mg 02/03/19 14:51 Phenergan IM 02/03/19 14:52 ONETIME ONE Departure - Departure Time of Disposition: 15:30 Disposition: Home, Self-Care 01 Condition: Good Clinical Impression: Migraine headache Qualifiers: Migraine type: unspecified Status migrainosus presence: without status migrainosus Intractability: intractable Qualified Code(s): G43.919 - Migraine, unspecified, intractable, without status migrainosus - Discharge Information *PRESCRIPTION DRUG MONITORING PROGRAM REVIEWED*: Not Applicable *COPY OF PRESCRIPTION DRUG MONITORING REPORT IN PATIENT DELPHINE: Not Applicable Instructions: Recurrent Migraine Headache, [id number] Forms: ED Department Discharge Additional Instructions: Follow up in clinic if any further problems. I have read and agree with the documentation that has been completed regarding this visit. By signing this record, I attest that the documentation was completed in my physical presence and is an accurate record of the encounter.
[2019-02-03] MEDS: Promethazine 25 MG/ML SDV IM ONE (15:02)
[2019-02-03 15:08] VITALS: BP 150/84; PULSE 60
== END 2019-02-03 15:14 | disposition home or self-care (01) ==
LOC: DL.ED 14:49
DX: G43.919 Migraine, unspecified, intractable, without status migrainosus (principal); F41.9 Anxiety disorder, unspecified; I10 Essential (primary) hypertension; Z88.6 Allergy status to analgesic agent; Z88.8 Allergy status to other drugs, medicaments and biological substances; Z88.5 Allergy status to narcotic agent; Z88.0 Allergy status to penicillin; Z88.1 Allergy status to other antibiotic agents; Z79.82 Long term (current) use of aspirin; Z79.899 Other long term (current) drug therapy
CPT/HCPCS: 96372; 99283; J0595; J2550

== ENCOUNTER 2019-02-18 14:45 | Emergency (ER) | payer OTHER ==
[2019-02-18 15:00] VITALS: BP 140/92; PULSE 75
[2019-02-18] MEDS ORDERED: Butorphanol 2 MG/ML SDV IM ONE (15:16)
[2019-02-18] MEDS ORDERED: Ondansetron 4 MG/2 ML SDV IM ONE (15:17)
--- NOTE | 2019-02-18 15:17 | EDM.PDOC ---
ED HPI GENERAL MEDICAL PROBLEM - General Chief Complaint: Headache Stated Complaint: MIGRAIN Time Seen by Provider: 02/18/19 15:10 Source of Information: Reports: Patient, RN, RN Notes Reviewed History Limitations: Reports: No Limitations - History of Present Illness INITIAL COMMENTS - FREE TEXT/NARRATIVE: Patient presents to the ER with complaint of migraine headache. He states he's had a headache for 2-3 months. Patient states he had injections in his neck last week, and the headache has been daily. He has been seen in the clinic and given IM injections for the headache. States yesterday the headache was tolerable. States he has been taking all of his medications as prescribed. And today the headache has been unbearable again. Onset: Gradual Duration: Constant Location: Reports: Head Headache Pain Score (Numeric/FACES): 8 - Related Data Allergies Allergy/AdvReac Type Severity Reaction Status Date / Time diphenhydramine HCl Allergy Intermediate Itching Verified 02/03/19 15:04 [From Benadryl] ketorolac tromethamine Allergy Intermediate Hives Verified 02/03/19 15:04 [From Toradol] morphine Allergy Intermediate Itching Verified 02/03/19 15:04 oxycodone HCl [From Percocet] Allergy Intermediate Itching Verified 02/03/19 15: 04 Penicillins Allergy Intermediate Itching Verified 02/03/19 15:04 clarithromycin Allergy Mild Rash Verified 02/03/19 15:04 prochlorperazine Allergy Mild Itching Verified 02/03/19 15:04 topiramate Allergy Mild Headache Verified 02/03/19 15:04 tramadol Allergy Mild Itching Verified 02/03/19 15:04 cyproheptadine Allergy Cannot Verified 02/03/19 15:04 Remember formaldehyde Allergy Cannot Verified 02/03/19 15:04 Remember haloperidol [From Haldol] Allergy Nausea Verified 02/03/19 15:04 haloperidol lactate Allergy Nausea Verified 02/03/19 15:04 [From Haldol] hydrocodone Allergy Hives Verified 02/03/19 15:04 olmesartan medoxomil Allergy Dizziness Verified 02/03/19 15:04 [From Benicar HCT] propoxyphene napsylate Allergy Itching Verified 02/03/19 15:04 [From Darvocet-N 100] Home Meds: Home Meds Almotriptan [Axert] 12.5 mg PO ASDIRECTED PRN 03/29/13 [History] Doxepin [SINEquan] 150 mg PO BEDTIME 03/29/13 [History] Ibuprofen [Motrin] 200 mg PO Q6H PRN 03/29/13 [History] Losartan/Hydrochlorothiazide [Hyzaar 50-12.5 Tablet] 1 tab PO DAILY 05/17/13 [ History] Naproxen 500 mg PO BID 06/06/14 [History] Propranolol [Inderal LA] 1 tab PO DAILY 03/17/17 [History] Aspirin 81 mg PO DAILY 09/02/18 [History] Clindamycin HCl 600 mg PO DAILY PRN 09/02/18 [History] Colesevelam [Welchol] 2 cap PO DAILY 09/02/18 [History] Galcanezumab-Gnlm [Emgality Pen] 120 mg SUBCUT ASDIRECTED 09/02/18 [History] Past Medical History HEENT History: Reports: Impaired Vision Cardiovascular History: Reports: High Cholesterol, Hypertension Respiratory History: Reports: Sleep Apnea Gastrointestinal History: Reports: None Genitourinary History: Reports: None Neurological History: Reports: Migraines Psychiatric History: Reports: Anxiety Endocrine/Metabolic History: Reports: None Hematologic History: Reports: None Immunologic History: Reports: None Oncologic (Cancer) History: Reports: None Dermatologic History: Reports: None - Infectious Disease History Infectious Disease History: Reports: Chicken Pox - Past Surgical History Head Surgeries/Procedures: Reports: None HEENT Surgical History: Reports: Naso-Sinus Surgery, Tonsillectomy Musculoskeletal Surgical History: Reports: Hip Replacement Social & Family History - Family History Family Medical History: Noncontributory - Caffeine Use Caffeine Use: Reports: None - Living Situation & Occupation Living situation: Reports: Single Occupation: Employed ED ROS GENERAL - Review of Systems Review Of Systems: Comprehensive ROS is negative, except as noted in HPI. - Physical Exam Exam: See Below Exam Limited By: No Limitations General Appearance: Alert, WD/WN, No Apparent Distress Eye Exam: Bilateral Eye: EOMI, Normal Inspection Ears: Normal External Exam, Hearing Grossly Normal Nose: Normal Inspection Throat/Mouth: Normal Inspection, Normal Voice, No Airway Compromise Head Exam: Atraumatic, Normocephalic Neck: Normal Inspection, Supple, Non-Tender, Limited Range of Motion Respiratory/Chest: No Respiratory Distress, Lungs Clear, Normal Breath Sounds, No Accessory Muscle Use, Chest Non-Tender Cardiovascular: Normal Peripheral Pulses, Regular Rate, Rhythm, No Edema, No Gallop, No JVD, No Murmur, No Rub GI/Abdominal: Normal Bowel Sounds, Soft, Non-Tender, No Organomegaly, No Distention, No Abnormal Bruit, No Mass (Male) Exam: Deferred Rectal (Males) Exam: Deferred Neuro Exam (Abbreviated): Alert, Oriented, CN II-XII Intact, Normal Cognition, Normal Gait, Normal Reflexes, No Motor/Sensory Deficits Back Exam: Normal Inspection, Full Range of Motion, NT Extremities: Normal Inspection, Normal Range of Motion, Non-Tender, No Pedal Edema, Normal Capillary Refill Psychiatric: Normal Affect, Normal Mood, Flat Affect Skin Exam: Warm, Dry, Intact, Normal Color, No Rash Course - Vital Signs Last Recorded V/S: Last Vital Signs Temp 97.2 F 02/18/19 14:56 Pulse 75 02/18/19 14:56 Resp 18 02/18/19 14:56 BP 140/92 H 02/18/19 14:56 Pulse Ox 97 02/18/19 14:56 - Orders/Labs/Meds Meds: Medications Discontinued Medications Generic Name Dose Route Start Last Admin Trade Name Freq PRN Reason Stop Dose Admin Butorphanol Tartrate 2 mg 02/18/19 15:16 02/18/19 15:39 Stadol IM 02/18/19 15:17 2 mg ONETIME ONE Administration Ondansetron HCl 4 mg 02/18/19 15:17 02/18/19 15:40 Zofran IM 02/18/19 15:18 4 mg ONETIME ONE Administration Departure - Departure Time of Disposition: 16:00 Disposition: Home, Self-Care 01 Condition: Fair Clinical Impression: Migraine - Discharge Information *PRESCRIPTION DRUG MONITORING PROGRAM REVIEWED*: No *COPY OF PRESCRIPTION DRUG MONITORING REPORT IN PATIENT DELPHINE: No Instructions: Migraine Headache, [id number] Forms: ED Department Discharge Additional Instructions: follow-up with your primary care provider
== END 2019-02-18 16:03 | disposition home or self-care (01) ==
LOC: DL.ED 14:45
DX: G43.909 Migraine, unspecified, not intractable, without status migrainosus (principal); I10 Essential (primary) hypertension; Z88.8 Allergy status to other drugs, medicaments and biological substances; Z88.6 Allergy status to analgesic agent; Z88.5 Allergy status to narcotic agent; Z88.0 Allergy status to penicillin; Z88.1 Allergy status to other antibiotic agents; Z79.82 Long term (current) use of aspirin; Z79.899 Other long term (current) drug therapy
CPT/HCPCS: 96372; 99283-25; J0595; J2405

== ENCOUNTER 2019-03-17 14:22 | Emergency (ER) | payer OTHER ==
[2019-03-17 14:32] VITALS: BP 132/81; PULSE 87
[2019-03-17] MEDS: Butorphanol 2 MG/ML SDV IM ONE (14:45)
[2019-03-17] MEDS: Ondansetron 4 MG/2 ML SDV IV ONE (14:45)
--- NOTE | 2019-03-17 14:47 | EDM.PDOC ---
ED HPI GENERAL MEDICAL PROBLEM - General Chief Complaint: Headache Stated Complaint: MIGRAINE Time Seen by Provider: 03/17/19 14:35 Source of Information: Reports: Patient History Limitations: Reports: No Limitations - History of Present Illness INITIAL COMMENTS - FREE TEXT/NARRATIVE: This 53 yo male patient reports to the ED with a migraine headache. The patient reports his migraine headache started this morning at 0500 the patient reports he has taken his abortive medications, but has had no symptom relief. The patient reports he has seen Dr. Gonzales about his headache and they are attempting to make some medication changes. Onset: Today Onset Date: 03/17/19 Onset Time: 05:00 Duration: Other Location: Reports: Head Quality: Reports: Ache Severity: Moderate Improves with: Reports: None Worsens with: Reports: None Context: Reports: Other Associated Symptoms: Reports: No Other Symptoms Head Pain Score (Numeric/FACES): 8 - Related Data Allergies Allergy/AdvReac Type Severity Reaction Status Date / Time diphenhydramine HCl Allergy Intermediate Itching Verified 03/17/19 14:31 [From Benadryl] ketorolac tromethamine Allergy Intermediate Hives Verified 03/17/19 14:31 [From Toradol] morphine Allergy Intermediate Itching Verified 03/17/19 14:31 oxycodone HCl [From Percocet] Allergy Intermediate Itching Verified 03/17/19 14: 31 Penicillins Allergy Intermediate Itching Verified 03/17/19 14:31 clarithromycin Allergy Mild Rash Verified 03/17/19 14:31 prochlorperazine Allergy Mild Itching Verified 03/17/19 14:31 topiramate Allergy Mild Headache Verified 03/17/19 14:31 tramadol Allergy Mild Itching Verified 03/17/19 14:31 cyproheptadine Allergy Cannot Verified 03/17/19 14:31 Remember formaldehyde Allergy Cannot Verified 03/17/19 14:31 Remember haloperidol [From Haldol] Allergy Nausea Verified 03/17/19 14:31 haloperidol lactate Allergy Nausea Verified 03/17/19 14:31 [From Haldol] hydrocodone Allergy Hives Verified 03/17/19 14:31 olmesartan medoxomil Allergy Dizziness Verified 03/17/19 14:31 [From Benicar HCT] propoxyphene napsylate Allergy Itching Verified 03/17/19 14:31 [From Darvocet-N 100] Home Meds: Home Meds Almotriptan [Axert] 12.5 mg PO ASDIRECTED PRN 03/29/13 [History] Doxepin [SINEquan] 150 mg PO BEDTIME 03/29/13 [History] Ibuprofen [Motrin] 200 mg PO Q6H PRN 03/29/13 [History] Losartan/Hydrochlorothiazide [Hyzaar 50-12.5 Tablet] 1 tab PO DAILY 05/17/13 [ History] Naproxen 500 mg PO BID 06/06/14 [History] Propranolol [Inderal LA] 1 tab PO DAILY 03/17/17 [History] Aspirin 81 mg PO DAILY 09/02/18 [History] Clindamycin HCl 600 mg PO DAILY PRN 09/02/18 [History] Colesevelam [Welchol] 2 cap PO DAILY 09/02/18 [History] Galcanezumab-Gnlm [Emgality Pen] 120 mg SUBCUT ASDIRECTED 09/02/18 [History] Past Medical History HEENT History: Reports: Impaired Vision Cardiovascular History: Reports: High Cholesterol, Hypertension Respiratory History: Reports: Sleep Apnea Gastrointestinal History: Reports: None Genitourinary History: Reports: None Neurological History: Reports: Migraines Psychiatric History: Reports: Anxiety Endocrine/Metabolic History: Reports: None Hematologic History: Reports: None Immunologic History: Reports: None Oncologic (Cancer) History: Reports: None Dermatologic History: Reports: None - Infectious Disease History Infectious Disease History: Reports: Chicken Pox - Past Surgical History Head Surgeries/Procedures: Reports: None HEENT Surgical History: Reports: Naso-Sinus Surgery, Tonsillectomy Musculoskeletal Surgical History: Reports: Hip Replacement Social & Family History - Family History Family Medical History: Noncontributory - Tobacco Use Smoking Status *Q: Never Smoker - Caffeine Use Caffeine Use: Reports: None - Recreational Drug Use Recreational Drug Use: No - Living Situation & Occupation Living situation: Reports: Single Occupation: Employed ED ROS GENERAL - Review of Systems Review Of Systems: Comprehensive ROS is negative, except as noted in HPI. - Physical Exam Exam: See Below Exam Limited By: No Limitations General Appearance: Alert, WD/WN, No Apparent Distress Eye Exam: Bilateral Eye: EOMI, Normal Inspection, PERRL Ears: Normal External Exam, Normal Canal, Hearing Grossly Normal, Normal TMs Nose: Normal Inspection, Normal Mucosa, No Blood Throat/Mouth: Normal Inspection, Normal Lips, Normal Teeth, Normal Gums, Normal Oropharynx, Normal Voice, No Airway Compromise Head Exam: Atraumatic, Normocephalic Neck: Normal Inspection, Supple, Non-Tender, Full Range of Motion Respiratory/Chest: No Respiratory Distress, Lungs Clear, Normal Breath Sounds, No Accessory Muscle Use, Chest Non-Tender Cardiovascular: Normal Peripheral Pulses, Regular Rate, Rhythm, No Edema, No Gallop, No JVD, No Murmur, No Rub GI/Abdominal: Normal Bowel Sounds, Soft, Non-Tender (Male) Exam: Deferred Rectal (Males) Exam: Deferred Neuro Exam (Abbreviated): Alert, Oriented, CN II-XII Intact, Normal Cognition, Normal Gait, Normal Reflexes, No Motor/Sensory Deficits Back Exam: Normal Inspection, Full Range of Motion, NT Extremities: Normal Inspection, Normal Range of Motion, Non-Tender, No Pedal Edema, Normal Capillary Refill Psychiatric: Normal Affect, Normal Mood Skin Exam: Warm, Dry, Intact, Normal Color, No Rash Course - Vital Signs Last Recorded V/S: Last Vital Signs Temp 35.8 C 03/17/19 14:29 Pulse 87 03/17/19 14:29 Resp 16 03/17/19 14:29 BP 132/81 03/17/19 14:29 Pulse Ox 98 03/17/19 14:29 - Orders/Labs/Meds Meds: Medications Discontinued Medications Generic Name Dose Route Start Last Admin Trade Name Freq PRN Reason Stop Dose Admin Butorphanol Tartrate 2 mg 03/17/19 14:39 03/17/19 14:45 Stadol IM 03/17/19 14:40 2 mg ONETIME ONE Administration Ondansetron HCl 4 mg 03/17/19 14:39 03/17/19 14:45 Zofran IV 03/17/19 14:40 4 mg ONETIME ONE Administration Departure - Departure Time of Disposition: 14:47 Disposition: Home, Self-Care 01 Condition: Fair Clinical Impression: Migraine - Discharge Information *PRESCRIPTION DRUG MONITORING PROGRAM REVIEWED*: Not Applicable *COPY OF PRESCRIPTION DRUG MONITORING REPORT IN PATIENT DELPHINE: Not Applicable Instructions: Migraine Headache, [id number] Forms: ED Department Discharge Care Plan Goals: The patient was advised of the examination and lab results during the visit. The patient was given IM Stadol and IM Zofran while in the ED. The patient was encouraged to increase his oral fluid intake over the next 48 hours. The patient may take Tylenol or ibuprofen as directed for temporary symptom relief. If the patient has any additional symptoms or concerns, the patient should either return to the emergency department or visit his primary care facility. Sepsis Event Note - Evaluation Sepsis Screening Result: No Definite Risk - Focused Exam Vital Signs: Vital Signs Temp Pulse Resp BP Pulse Ox 03/17/19 14:29 35.8 C 87 16 132/81 98 Date Exam was Performed: 03/17/19 Time Exam was Performed: 14:50
== END 2019-03-17 14:53 | disposition home or self-care (01) ==
LOC: DL.ED 14:22
DX: G43.909 Migraine, unspecified, not intractable, without status migrainosus (principal); I10 Essential (primary) hypertension; E78.00 Pure hypercholesterolemia, unspecified; F41.9 Anxiety disorder, unspecified; Z79.82 Long term (current) use of aspirin; Z79.899 Other long term (current) drug therapy; Z88.8 Allergy status to other drugs, medicaments and biological substances; Z88.5 Allergy status to narcotic agent; Z88.1 Allergy status to other antibiotic agents; Z88.2 Allergy status to sulfonamides
CPT/HCPCS: 96372; 96374; 99283; J0595; J2405

== ENCOUNTER 2019-04-28 15:17 | Emergency (ER) | payer OTHER ==
[2019-04-28 15:27] VITALS: BP 130/85; PULSE 70
[2019-04-28] MEDS ORDERED: Butorphanol 2 MG/ML SDV IM ONE (15:29)
[2019-04-28] MEDS ORDERED: Promethazine 25 MG/ML SDV IM ONE (15:29)
--- NOTE | 2019-04-28 15:41 | EDM.PDOC ---
Scribed by Norma Gonzalez 04/28/19 1541 for Huang Lord MD ED HPI GENERAL MEDICAL PROBLEM - General Chief Complaint: Headache Stated Complaint: MIGRAINE Time Seen by Provider: 04/28/19 15:29 Source of Information: Reports: Patient, RN, RN Notes Reviewed History Limitations: Reports: No Limitations - History of Present Illness INITIAL COMMENTS - FREE TEXT/NARRATIVE: Patient presents to ER with a migraine headache. He has one today 8/10 pain scale. His migraine today is the same as his usual migraine headache. Onset: Today Duration: Getting Worse Location: Reports: Head Quality: Reports: Ache Severity: Moderate Improves with: Reports: None Worsens with: Reports: None Associated Symptoms: Reports: No Other Symptoms Headache Pain Score (Numeric/FACES): 8 - Related Data Allergies Allergy/AdvReac Type Severity Reaction Status Date / Time diphenhydramine HCl Allergy Intermediate Itching Verified 04/28/19 15:27 [From Benadryl] ketorolac tromethamine Allergy Intermediate Hives Verified 04/28/19 15:27 [From Toradol] morphine Allergy Intermediate Itching Verified 04/28/19 15:27 oxycodone HCl [From Percocet] Allergy Intermediate Itching Verified 04/28/19 15: 27 Penicillins Allergy Intermediate Itching Verified 04/28/19 15:27 clarithromycin Allergy Mild Rash Verified 04/28/19 15:27 prochlorperazine Allergy Mild Itching Verified 04/28/19 15:27 topiramate Allergy Mild Headache Verified 04/28/19 15:27 tramadol Allergy Mild Itching Verified 04/28/19 15:27 cyproheptadine Allergy Cannot Verified 04/28/19 15:27 Remember formaldehyde Allergy Cannot Verified 04/28/19 15:27 Remember haloperidol [From Haldol] Allergy Nausea Verified 04/28/19 15:27 haloperidol lactate Allergy Nausea Verified 04/28/19 15:27 [From Haldol] hydrocodone Allergy Hives Verified 04/28/19 15:27 olmesartan medoxomil Allergy Dizziness Verified 04/28/19 15:27 [From Benicar HCT] propoxyphene napsylate Allergy Itching Verified 04/28/19 15:27 [From Darvocet-N 100] Home Meds: Home Meds Almotriptan [Axert] 12.5 mg PO ASDIRECTED PRN 03/29/13 [History] Doxepin [SINEquan] 150 mg PO BEDTIME 03/29/13 [History] Ibuprofen [Motrin] 200 mg PO Q6H PRN 03/29/13 [History] Losartan/Hydrochlorothiazide [Hyzaar 50-12.5 Tablet] 1 tab PO DAILY 05/17/13 [ History] Naproxen 500 mg PO BID 06/06/14 [History] Propranolol [Inderal LA] 1 tab PO DAILY 03/17/17 [History] Aspirin 81 mg PO DAILY 09/02/18 [History] Clindamycin HCl 600 mg PO DAILY PRN 09/02/18 [History] Colesevelam [Welchol] 2 cap PO DAILY 09/02/18 [History] Galcanezumab-Gnlm [Emgality Pen] 120 mg SUBCUT ASDIRECTED 09/02/18 [History] Past Medical History HEENT History: Reports: Impaired Vision Cardiovascular History: Reports: High Cholesterol, Hypertension Respiratory History: Reports: Sleep Apnea Gastrointestinal History: Reports: None Genitourinary History: Reports: None Neurological History: Reports: Migraines Psychiatric History: Reports: Anxiety Endocrine/Metabolic History: Reports: None Hematologic History: Reports: None Immunologic History: Reports: None Oncologic (Cancer) History: Reports: None Dermatologic History: Reports: None - Infectious Disease History Infectious Disease History: Reports: Chicken Pox - Past Surgical History Head Surgeries/Procedures: Reports: None HEENT Surgical History: Reports: Naso-Sinus Surgery, Tonsillectomy Musculoskeletal Surgical History: Reports: Hip Replacement Social & Family History - Family History Family Medical History: Noncontributory - Caffeine Use Caffeine Use: Reports: None - Living Situation & Occupation Living situation: Reports: Single Occupation: Employed ED ROS GENERAL - Review of Systems Review Of Systems: Comprehensive ROS is negative, except as noted in HPI. - Physical Exam Exam: See Below Exam Limited By: No Limitations General Appearance: Alert, WD/WN, No Apparent Distress Eye Exam: Bilateral Eye: Other (photophobia) Ears: Normal External Exam Nose: Normal Inspection Throat/Mouth: Normal Inspection Head Exam: Atraumatic, Normocephalic Neck: Normal Inspection Respiratory/Chest: No Respiratory Distress Cardiovascular: Regular Rate, Rhythm Course - Vital Signs Last Recorded V/S: Last Vital Signs Temp 97.1 F 04/28/19 15:25 Pulse 70 04/28/19 15:25 Resp 16 04/28/19 15:25 BP 130/85 04/28/19 15:25 Pulse Ox 99 04/28/19 15:25 - Orders/Labs/Meds Meds: Medications Discontinued Medications Generic Name Dose Route Start Last Admin Trade Name Christie PRN Reason Stop Dose Admin Butorphanol Tartrate 2 mg 04/28/19 15:29 04/28/19 15:36 Stadol IM 04/28/19 15:30 2 mg ONETIME ONE Administration Promethazine HCl 50 mg 04/28/19 15:29 04/28/19 15:35 Phenergan IM 04/28/19 15:30 50 mg ONETIME ONE Administration Departure - Departure Time of Disposition: 15:39 Disposition: Home, Self-Care 01 Condition: Good Clinical Impression: Migraine Qualifiers: Migraine type: chronic without aura Status migrainosus presence: without status migrainosus Intractability: intractable Qualified Code(s): G43.719 - Chronic migraine without aura, intractable, without status migrainosus - Discharge Information *PRESCRIPTION DRUG MONITORING PROGRAM REVIEWED*: No *COPY OF PRESCRIPTION DRUG MONITORING REPORT IN PATIENT DELPHINE: No Instructions: Migraine Headache, [id number] Forms: ED Department Discharge Additional Instructions: Follow up in clinic this coming week if needed. Sepsis Event Note - Focused Exam Vital Signs: Vital Signs Temp Pulse Resp BP Pulse Ox 04/28/19 15:25 97.1 F 70 16 130/85 99 Date Exam was Performed: 04/28/19 Time Exam was Performed: 15:39 I have read and agree with the documentation that has been completed regarding this visit. By signing this record, I attest that the documentation was completed in my physical presence and is an accurate record of the encounter.
== END 2019-04-28 15:45 | disposition home or self-care (01) ==
LOC: DL.ED 15:17
DX: G43.719 Chronic migraine without aura, intractable, without status migrainosus (principal); I10 Essential (primary) hypertension; F41.9 Anxiety disorder, unspecified; Z88.8 Allergy status to other drugs, medicaments and biological substances; Z88.5 Allergy status to narcotic agent; Z88.0 Allergy status to penicillin; Z88.1 Allergy status to other antibiotic agents; Z79.82 Long term (current) use of aspirin; Z79.899 Other long term (current) drug therapy
CPT/HCPCS: 96372; 99283; J0595; J2550

== ENCOUNTER 2019-06-09 18:59 | Emergency (ER) | payer OTHER ==
[2019-06-09 20:13] VITALS: BP 116/74; PULSE 73
--- NOTE | 2019-06-09 20:42 | EDM.PDOC ---
ED HPI GENERAL MEDICAL PROBLEM - General Chief Complaint: Headache Stated Complaint: MIGRAIN Time Seen by Provider: 06/09/19 20:37 Source of Information: Reports: Patient History Limitations: Reports: No Limitations - History of Present Illness INITIAL COMMENTS - FREE TEXT/NARRATIVE: ED with c/o migraine headache, Mainly over right parietal. Nausea no vomiting. Has chronic headache pain, last time minimal or alsomost complete relief was Tuesday after injection in clinic. Neurologist in [facility], follow up in August. Has tried multiple medications. Last was imonthly injections but reacted and not helping so were discontinued. 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) Right Headache Pain Score (Numeric/FACES): 8 - Related Data Allergies Allergy/AdvReac Type Severity Reaction Status Date / Time diphenhydramine HCl Allergy Intermediate Itching Verified 06/09/19 20:15 [From Benadryl] ketorolac tromethamine Allergy Intermediate Hives Verified 06/09/19 20:15 [From Toradol] morphine Allergy Intermediate Itching Verified 06/09/19 20:15 oxycodone HCl [From Percocet] Allergy Intermediate Itching Verified 06/09/19 20: 15 Penicillins Allergy Intermediate Itching Verified 06/09/19 20:15 clarithromycin Allergy Mild Rash Verified 06/09/19 20:15 prochlorperazine Allergy Mild Itching Verified 06/09/19 20:15 topiramate Allergy Mild Headache Verified 06/09/19 20:15 tramadol Allergy Mild Itching Verified 06/09/19 20:15 cyproheptadine Allergy Cannot Verified 06/09/19 20:15 Remember formaldehyde Allergy Cannot Verified 06/09/19 20:15 Remember haloperidol [From Haldol] Allergy Nausea Verified 06/09/19 20:15 haloperidol lactate Allergy Nausea Verified 06/09/19 20:15 [From Haldol] hydrocodone Allergy Hives Verified 06/09/19 20:15 olmesartan medoxomil Allergy Dizziness Verified 06/09/19 20:15 [From Benicar HCT] propoxyphene napsylate Allergy Itching Verified 06/09/19 20:15 [From Darvocet-N 100] Home Meds: Home Meds Almotriptan [Axert] 12.5 mg PO ASDIRECTED PRN 03/29/13 [History] Doxepin [SINEquan] 150 mg PO BEDTIME 03/29/13 [History] Ibuprofen [Motrin] 200 mg PO Q6H PRN 03/29/13 [History] Losartan/Hydrochlorothiazide [Hyzaar 50-12.5 Tablet] 1 tab PO DAILY 05/17/13 [ History] Naproxen 500 mg PO BID 06/06/14 [History] Propranolol [Inderal LA] 1 tab PO DAILY 03/17/17 [History] Aspirin 81 mg PO DAILY 09/02/18 [History] Clindamycin HCl 600 mg PO DAILY PRN 09/02/18 [History] Colesevelam [Welchol] 2 cap PO DAILY 09/02/18 [History] Past Medical History HEENT History: Reports: Impaired Vision Cardiovascular History: Reports: High Cholesterol, Hypertension Respiratory History: Reports: Sleep Apnea Gastrointestinal History: Reports: None Genitourinary History: Reports: None Neurological History: Reports: Migraines Psychiatric History: Reports: Anxiety Endocrine/Metabolic History: Reports: None Hematologic History: Reports: None Immunologic History: Reports: None Oncologic (Cancer) History: Reports: None Dermatologic History: Reports: None - Infectious Disease History Infectious Disease History: Reports: Chicken Pox - Past Surgical History Head Surgeries/Procedures: Reports: None HEENT Surgical History: Reports: Naso-Sinus Surgery, Tonsillectomy Musculoskeletal Surgical History: Reports: Hip Replacement Social & Family History - Family History Family Medical History: Noncontributory - Tobacco Use Smoking Status *Q: Never Smoker Second Hand Smoke Exposure: No - Caffeine Use Caffeine Use: Reports: Coffee - Recreational Drug Use Recreational Drug Use: No - Living Situation & Occupation Living situation: Reports: Single Occupation: Employed ED ROS GENERAL - Review of Systems Review Of Systems: Comprehensive ROS is negative, except as noted in HPI. - Physical Exam Exam: See Below Exam Limited By: No Limitations General Appearance: Alert, Mild Distress Eye Exam: Bilateral Eye: EOMI, PERRL Ears: Normal External Exam, Hearing Grossly Normal, Normal TMs Nose: Normal Inspection Throat/Mouth: Normal Inspection Head Exam: Atraumatic, Normocephalic Neck: Normal Inspection Respiratory/Chest: No Respiratory Distress, Lungs Clear, Normal Breath Sounds Cardiovascular: Normal Peripheral Pulses GI/Abdominal: Soft Neuro Exam (Abbreviated): Alert, Oriented, Normal Cognition Back Exam: Normal Inspection Extremities: Normal Inspection Psychiatric: Normal Affect Skin Exam: Warm, Dry, Intact, Pallor Course - Vital Signs Last Recorded V/S: Last Vital Signs Temp 97.9 F 06/09/19 20:10 Pulse 73 06/09/19 20:10 Resp 16 06/09/19 20:10 BP 116/74 06/09/19 20:10 Pulse Ox 96 06/09/19 20:10 - Orders/Labs/Meds Meds: Medications Discontinued Medications Generic Name Dose Route Start Last Admin Trade Name Christie PRN Reason Stop Dose Admin Butorphanol Tartrate 2 mg 06/09/19 20:37 06/09/19 20:48 Stadol IM 06/09/19 20:38 2 mg ONETIME ONE Administration Promethazine HCl 50 mg 06/09/19 20:37 06/09/19 20:46 Phenergan IM 06/09/19 20:38 50 mg ONETIME ONE Administration Departure - Departure Time of Disposition: 20:40 Disposition: Home, Self-Care 01 Condition: Good Clinical Impression: Migraine - Discharge Information *PRESCRIPTION DRUG MONITORING PROGRAM REVIEWED*: No *COPY OF PRESCRIPTION DRUG MONITORING REPORT IN PATIENT DELPHINE: No Instructions: Migraine Headache, [id number] Forms: ED Department Discharge Additional Instructions: Continue home medications push fluids avoid triggers follow up with primary care this coming week, Follow up with neurologist if increasing frequency or intensity of migraines Sepsis Event Note - Evaluation Sepsis Screening Result: No Definite Risk - Focused Exam Vital Signs: Vital Signs Temp Pulse Resp BP Pulse Ox 06/09/19 20:10 97.9 F 73 16 116/74 96 Date Exam was Performed: 06/10/19 Time Exam was Performed: 05:41
[2019-06-09] MEDS: Promethazine 25 MG/ML SDV IM ONE (20:46)
[2019-06-09] MEDS: Butorphanol 2 MG/ML SDV IM ONE (20:48)
== END 2019-06-09 20:58 | disposition home or self-care (01) ==
LOC: DL.ED 18:59
DX: G43.909 Migraine, unspecified, not intractable, without status migrainosus (principal); E78.00 Pure hypercholesterolemia, unspecified; I10 Essential (primary) hypertension; F41.9 Anxiety disorder, unspecified; Z88.8 Allergy status to other drugs, medicaments and biological substances; Z88.5 Allergy status to narcotic agent; Z88.0 Allergy status to penicillin; Z88.6 Allergy status to analgesic agent; Z88.1 Allergy status to other antibiotic agents; Z79.899 Other long term (current) drug therapy; Z79.82 Long term (current) use of aspirin
CPT/HCPCS: 96372; 99283; J0595; J2550

== ENCOUNTER 2020-01-27 20:13 | Emergency (ER) | payer OTHER ==
[2020-01-27] MEDS ORDERED: Butorphanol 2 MG/ML SDV IM ONE (21:20)
[2020-01-27] MEDS ORDERED: Promethazine 25 MG/ML SDV IM ONE (21:21)
--- NOTE | 2020-01-27 21:23 | EDM.PDOC ---
ED HPI GENERAL MEDICAL PROBLEM - General Chief Complaint: Headache Stated Complaint: MIRGRAINE Time Seen by Provider: 01/27/20 21:23 Source of Information: Reports: Patient, RN, RN Notes Reviewed History Limitations: Reports: No Limitations - History of Present Illness INITIAL COMMENTS - FREE TEXT/NARRATIVE: Pt presents to ER with c/o migraine headache that wraps around the head, and rates the pain 10/10. States the headache began Tuesday. states he was seen in the clinic by Dr. Parish on for meds for the headache. States and Tuesday he had nausea, vomiting, diarrhea, productive cough, chills. Patient states he was tested for COVID on Tuesday and got results today and was POSITIVE. Patient states the headache is not different from his normal migraine headaches, he just cannot get rid of it. Onset: Gradual Headache Pain Score (Numeric/FACES): 10 - Related Data Allergies Allergy/AdvReac Type Severity Reaction Status Date / Time diphenhydramine HCl Allergy Intermediate Itching Verified 06/09/19 20:15 [From Benadryl] ketorolac tromethamine Allergy Intermediate Hives Verified 06/09/19 20:15 [From Toradol] morphine Allergy Intermediate Itching Verified 06/09/19 20:15 oxycodone HCl [From Percocet] Allergy Intermediate Itching Verified 06/09/19 20:15 Penicillins Allergy Intermediate Itching Verified 06/09/19 20:15 clarithromycin Allergy Mild Rash Verified 06/09/19 20:15 prochlorperazine Allergy Mild Itching Verified 06/09/19 20:15 topiramate Allergy Mild Headache Verified 06/09/19 20:15 tramadol Allergy Mild Itching Verified 06/09/19 20:15 cyproheptadine Allergy Cannot Verified 06/09/19 20:15 Remember formaldehyde Allergy Cannot Verified 06/09/19 20:15 Remember haloperidol [From Haldol] Allergy Nausea Verified 06/09/19 20:15 haloperidol lactate Allergy Nausea Verified 06/09/19 20:15 [From Haldol] hydrocodone Allergy Hives Verified 06/09/19 20:15 olmesartan medoxomil Allergy Dizziness Verified 06/09/19 20:15 [From Benicar HCT] propoxyphene napsylate Allergy Itching Verified 06/09/19 20:15 [From Darvocet-N 100] Home Meds: Home Meds Almotriptan [Axert] 12.5 mg PO ASDIRECTED PRN 03/29/13 [History] Doxepin [SINEquan] 150 mg PO BEDTIME 03/29/13 [History] Ibuprofen [Motrin] 200 mg PO Q6H PRN 03/29/13 [History] Losartan/Hydrochlorothiazide [Hyzaar 50-12.5 Tablet] 1 tab PO DAILY 05/17/13 [History] Naproxen 500 mg PO BID 06/06/14 [History] Propranolol [Inderal LA] 1 tab PO DAILY 03/17/17 [History] Aspirin 81 mg PO DAILY 09/02/18 [History] Clindamycin HCl 600 mg PO DAILY PRN 09/02/18 [History] Colesevelam [Welchol] 2 cap PO DAILY 09/02/18 [History] Rimegepant Sulfate [Nurtec Odt] 75 mg PO ASDIRECTED PRN 01/27/20 [History] Past Medical History HEENT History: Reports: Impaired Vision Cardiovascular History: Reports: High Cholesterol, Hypertension Respiratory History: Reports: Sleep Apnea Gastrointestinal History: Reports: None Genitourinary History: Reports: None Neurological History: Reports: Migraines Psychiatric History: Reports: Anxiety Endocrine/Metabolic History: Reports: None Hematologic History: Reports: None Immunologic History: Reports: None Oncologic (Cancer) History: Reports: None Dermatologic History: Reports: None - Infectious Disease History Infectious Disease History: Reports: Chicken Pox - Past Surgical History Head Surgeries/Procedures: Reports: None HEENT Surgical History: Reports: Naso-Sinus Surgery, Tonsillectomy Musculoskeletal Surgical History: Reports: Hip Replacement Social & Family History - Family History Family Medical History: Noncontributory - Caffeine Use Caffeine Use: Reports: Coffee - Living Situation & Occupation Living situation: Reports: Single Occupation: Employed ED ROS GENERAL - Review of Systems Review Of Systems: Comprehensive ROS is negative, except as noted in HPI. - Physical Exam Exam: See Below Exam Limited By: No Limitations General Appearance: Alert, WD/WN, Mild Distress Eye Exam: Bilateral Eye: EOMI, Normal Inspection Ears: Normal External Exam, Hearing Grossly Normal Nose: Normal Inspection Throat/Mouth: Normal Inspection, Normal Voice, No Airway Compromise Head Exam: Atraumatic, Normocephalic Neck: Normal Inspection, Supple, Non-Tender, Full Range of Motion Respiratory/Chest: No Respiratory Distress, Lungs Clear, Normal Breath Sounds, No Accessory Muscle Use, Chest Non-Tender Cardiovascular: Normal Peripheral Pulses, Regular Rate, Rhythm, No Edema, No Gallop, No JVD, No Murmur, No Rub GI/Abdominal: Normal Bowel Sounds, Soft, Non-Tender, No Organomegaly, No Distention, No Abnormal Bruit, No Mass (Male) Exam: Deferred Rectal (Males) Exam: Deferred Neuro Exam (Abbreviated): Alert, Oriented, CN II-XII Intact, Normal Cognition, Normal Gait, No Motor/Sensory Deficits Back Exam: Normal Inspection, Full Range of Motion, NT Extremities: Normal Inspection, Normal Range of Motion, Non-Tender, No Pedal Edema, Normal Capillary Refill Psychiatric: Normal Affect, Normal Mood Skin Exam: Warm, Dry, Intact, Normal Color, No Rash Course - Vital Signs Last Recorded V/S: Last Vital Signs Temp 98.5 F 01/27/20 21:23 Pulse 82 01/27/20 21:23 Resp 16 01/27/20 21:23 BP 123/85 01/27/20 21:23 Pulse Ox 97 01/27/20 21:23 - Orders/Labs/Meds Meds: Medications Discontinued Medications Generic Name Dose Route Start Last Admin Trade Name Christie PRN Reason Stop Dose Admin Butorphanol Tartrate 2 mg 01/27/20 21:20 01/27/20 21:36 Stadol IM 01/27/20 21:21 2 mg ONETIME ONE Administration Promethazine HCl 25 mg 01/27/20 21:21 01/27/20 21:37 Phenergan IM 01/27/20 21:22 25 mg ONETIME ONE Administration Departure - Departure Time of Disposition: 21:52 Disposition: Home, Self-Care 01 Condition: Fair Clinical Impression: COVID-19 Migraine headache Qualifiers: Migraine type: chronic without aura Status migrainosus presence: without status migrainosus Intractability: intractable Qualified Code(s): G43.719 - Chronic migraine without aura, intractable, without status migrainosus - Discharge Information *PRESCRIPTION DRUG MONITORING PROGRAM REVIEWED*: No *COPY OF PRESCRIPTION DRUG MONITORING REPORT IN PATIENT DELPHINE: No Instructions: COVID-19 Frequently Asked Questions, Migraine Headache, [id number]-Cffe, COVID-19: How to Protect Yourself and Others - CDC, Prevent the Spread of COVID-19 if You Are Sick - CDC Forms: ED Department Discharge Additional Instructions: Continue to use home regimens for headaches as directed Follow up with your primary care facility Return to ER with any worsening of symptoms Drink plenty of water Sepsis Event Note (ED) - Focused Exam Vital Signs: Vital Signs Temp Pulse Resp BP Pulse Ox 01/27/20 21:23 98.5 F 82 16 123/85 97
[2020-01-27 21:25] VITALS: BP 123/85; PULSE 82
== END 2020-01-27 21:45 | disposition home or self-care (01) ==
LOC: DL.ED 20:13
DX: G43.719 Chronic migraine without aura, intractable, without status migrainosus (principal); U07.1 COVID-19; I10 Essential (primary) hypertension; F41.9 Anxiety disorder, unspecified; E78.00 Pure hypercholesterolemia, unspecified; Z79.82 Long term (current) use of aspirin; Z79.899 Other long term (current) drug therapy; Z88.6 Allergy status to analgesic agent; Z88.8 Allergy status to other drugs, medicaments and biological substances; Z88.1 Allergy status to other antibiotic agents; Z88.0 Allergy status to penicillin; Z88.3 Allergy status to other anti-infective agents
CPT/HCPCS: 96372; 99283; J0595; J2550

== ENCOUNTER 2021-11-01 11:19 | Emergency (ER) | payer BC ==
[2021-11-01] MEDS ORDERED: Sodium Chloride 0.9% 10 ML Syringe FLUSH PRN (11:33)
[2021-11-01] MEDS ORDERED: Butorphanol 2 MG/ML SDV IVPUSH ONE (11:33)
[2021-11-01] MEDS ORDERED: Famotidine 20 MG/2 ML SDV IVPUSH ONE (11:33)
[2021-11-01] MEDS ORDERED: methylPREDNISolone Sodium Succinate 125 MG/2 ML SDV IVPUSH ONE (11:33)
[2021-11-01 11:34] VITALS: BP 160/103; PULSE 96
[2021-11-01] MEDS ORDERED: Ondansetron 4 MG Tab.DIS PO ONE (11:52)
== END 2021-11-01 13:00 | disposition home or self-care (01) ==
LOC: DL.ED 11:19
DX: T78.40XA Allergy, unspecified, initial encounter (principal); G89.18 Other acute postprocedural pain; I10 Essential (primary) hypertension; Z88.8 Allergy status to other drugs, medicaments and biological substances; Z88.1 Allergy status to other antibiotic agents; Z88.6 Allergy status to analgesic agent; Z88.5 Allergy status to narcotic agent; Z79.899 Other long term (current) drug therapy; Z79.82 Long term (current) use of aspirin
CPT/HCPCS: 96374; 96375; 99282; A9270; J0595; J2930; J3490; 99284

== ENCOUNTER 2023-12-09 19:18 | Emergency (ER) | payer MEDICARE, BC ==
[2023-12-09 20:13] VITALS: BP 148/92; PULSE 87
[2023-12-09] MEDS: Dexamethasone 4 MG/ML SDV IVPUSH ONE (21:09)
== END 2023-12-09 22:42 | disposition home or self-care (01) ==
LOC: DL.ED 19:18
DX: G43.119 Migraine with aura, intractable, without status migrainosus (principal); I10 Essential (primary) hypertension; E78.00 Pure hypercholesterolemia, unspecified; Z79.899 Other long term (current) drug therapy; Z79.82 Long term (current) use of aspirin; Z88.0 Allergy status to penicillin; Z88.5 Allergy status to narcotic agent
CPT/HCPCS: 96374; 99283-25; J1100; Q0161

== ENCOUNTER 2024-05-08 15:57 | Emergency (ER) | payer MEDICARE ==
[2024-05-08 16:15] VITALS: BP 141/90; PULSE 77
[2024-05-08 16:47] LABS: BASOPHILS PERCENT AUTO 0.5 % (0.0-1.0); EOSINOPHILS PERCENT AUTO 2.3 % (1.0-3.0); HEMATOCRIT 44.1 % (40.0-54.0); HEMOGLOBIN 14.3 g/dL (14.0-18.0); LYMPHOCYTES PERCENT AUTO 25.1 % (20.5-50.1); MEAN CORPUSCULAR HEMOGLOBIN 30.4 pg (27.0-34.0); MEAN CORPUSCULAR HGB CONC 32.4 g/dL (33.0-35.0); MEAN CORPUSCULAR VOLUME 93.8 fL (80-100); MONOCYTES PERCENT AUTO 6.3 % (2-8); NEUTROPHILS PERCENT AUTO 65.8 % (42.2-75.2); PLATELET COUNT,PLT 199 10^3/uL (150-450)
[2024-05-08] MEDS: Acetaminophen 325 MG Tab PO ONE (16:53)
[2024-05-08 17:06] LABS: ALBUMIN 3.6 g/dL (3.4-5.0); BUN/CREATININE RATIO 13.3 (No establ ref range); CALCIUM 8.9 mg/dL (8.5-10.1); CREATININE 1.2 mg/dL (0.70-1.30); EST CRCL DRUG DOSING (CG) 59.07 mL/min; PROTEIN TOTAL,TP 6.8 g/dL (6.4-8.2)
[2024-05-08 17:07] LABS: A/G RATIO 1.1; BILIRUBIN TOTAL 0.4 mg/dL (0.2-1.0); MAGNESIUM 2.1 mg/dL (1.8-2.4)
[2024-05-08] MEDS: Magnesium Sulf/Wat 2 GM/50 mL 2 GM in Premix Bag 1 BAG IV ONE (17:55)
[2024-05-08] MEDS: Ibuprofen 600 MG Tab PO ONE (17:55)
[2024-05-08] MEDS: Lactated Ringers 1,000 ML IV SCH (17:56)
== END 2024-05-08 18:46 | disposition home or self-care (01) ==
LOC: DL.ED 15:57
DX: G43.909 Migraine, unspecified, not intractable, without status migrainosus (principal); E86.9 Volume depletion, unspecified; I10 Essential (primary) hypertension; Z96.649 Presence of unspecified artificial hip joint; Z88.0 Allergy status to penicillin; Z88.5 Allergy status to narcotic agent; Z88.8 Allergy status to other drugs, medicaments and biological substances; Z79.82 Long term (current) use of aspirin; Z79.899 Other long term (current) drug therapy
CPT/HCPCS: 36415; 70450; 80053; 83735; 85025; 96365; 99284; A9270; J3475; J7120